=== PATIENT | female | born 1990 | race Caucasian/White ===

== ENCOUNTER → 2022-12-10 07:55 | Outpatient (CLI) | payer BC, SELFPAY ==
--- NOTE | ~2022-12-10 | US_ITS ---
EXAMINATION: US OB /maternal detail DATE: 12/10/2022 08:35 INDICATION: Estimated weight. survey. TECHNIQUE: Multiple obstetric sonographic images performed. FINDINGS: No prior studies for comparison. There is a single living fetus in transverse presentation. The placenta is posterior without placent a previa. Placental margin is approximately 5 cm from the cervix. Cervical length is 3.7 cm. Amniotic fluid is subjectively normal. cardiac activity and movement is noted with a heart rate of 154 beats per minute. The following anatomy was identified as normal: 4 chamber heart 3 vessel cord cord insertion kidneys urinary bladder stomach spine diaphragm ventricles cisterna magna cerebellum The following biometric data were obtained: BPD: 43mm corresponds to gestational age 19 weeks 1 days. Head circumference: 157 mm corresponds to gestational age 18 weeks 4 days. Abdominal circumference: 130 mm corresponds to gestational age 18 weeks 4 days. Femur length: 26 mm corresponds to gestational age 18 weeks 0 days. Head circumference to abdominal circumference ratio: 1.21 (normal range for expected gestational age is 1.09-1.27). Estimated weight: 233 grams +/- 35 grams using Hadlock method, 64.5%. IMPRESSION: 1: Single living intrauterine with an estimated gestational age of 18weeks 4days by current ultrasound measurements, with an EDC of 05/09/2023 in transverse presentation. 2. Normal survey. Reviewed, dictated and finalized at location L. IMPRESSION: 1: Single living intrauterine with an estimated gestational age of 18 weeks 4days by current ultrasound measurements, with an EDC of 05/09/2023 in tra nsverse presentation. 2. Normal survey.
== END ==
PROVIDERS: PCP Obstetrics & Gynecology; Visit Provider Obstetrics & Gynecology
DX: Z36.9 Encounter for antenatal screening, unspecified (principal); Z3A.18 18 weeks gestation of pregnancy
CPT/HCPCS: 76805

== ENCOUNTER 2023-04-26 08:00 | Outpatient (RCR) | payer BC, SELFPAY ==
[2023-04-22 10:17] VITALS: BP 110/68; PULSE 72
--- NOTE | ~2023-04-26 | US_ITS ---
EXAMINATION: US OB limited w BPP DATE: 04/26/2023 09:40 INDICATION: Biophysical profile and assess amniotic fluid index during third trimester . TECHNIQUE: Real-time pelvic ultrasound was performed. The interpreting radiologist was not present fo r the study. COMPARISON: None. FINDINGS: There is a single living fetus in vertex presentation. The placenta is on the left.. heart rat e is 145 beats per minute (bpm). Normal amniotic fluid index 9.8 cm (5th%-95%: 7.5-24.4 cm at 37 week s estimated gestational age) Biophysical profile performed by the technologist: breathing (30 sec sustained breathing in 30 minutes): 2 out of 2 movement (3 gross body movements in 30 minutes): 2 out of 2 tone (one episode of vmfvvsk-iyejnbwhy-tofovju limb movement): 2 out of 2 Amniotic fluid pocket (2 cm): 2 out of 2 Total score: 8 out of 8 IMPRESSION: 1. Single living fetus in vertex presentation with heart rate of 145 bpm. 2. Biophysical profile 8 out of 8. 3. Normal amniotic fluid index of 9.8 cm. Reviewed, dictated and finalized at location A.
[2023-04-26 09:15] VITALS: BP 105/66; PULSE 91
== END 2023-06-09 12:00 | disposition home or self-care (01) ==
LOC: ANHOBOP 08:00
PROVIDERS: Visit Provider Obstetrics & Gynecology
DX: O24.419 Gestational diabetes mellitus in pregnancy, unspecified control (principal); Z3A.37 37 weeks gestation of pregnancy
CPT/HCPCS: 59025; 76815; 76819

== ENCOUNTER 2023-04-27 05:43 | Inpatient (IN) | payer BC, SELFPAY ==
[2023-04-27] VITALS (55 sets, daily range): BP systolic 89–125; BP diastolic 59–88; PULSE 77–174; RESP 16–20; TEMP 36.2–36.8; O2SAT 80–100; BMI 28.2
[2023-04-27] MEDS: LACTATED RINGERS 1,000 ML 125 ML IV CONT (07:21)
[2023-04-27] MEDS: OXYTOCIN 30 UNITS/NS 500 ML 30 UNITS/500 ML BAG IV CONT (07:22)
[2023-04-27 07:42] LABS: Glucose Point of Care 109 mg/dl (65-105)
[2023-04-27 07:44] LABS: Basophils Absolute Auto 0.1 K/mm3 (0.0-0.1); Basophils Percent Auto 0.6 % (0.2-1.2); Eosinophils Absolute Auto 0.1 K/mm3 (0-0.3); Eosinophils Percent Auto 1.4 % (0-4.4); Hematocrit 32.5 % (37.0-47.0); Hemoglobin 10.4 g/dL (12.0-15.0); Immature Granulocyte Absolute 0.03 K/mm3 (0.00-0.031); Immature Granulocyte Percent A 0.3 % (0-0.5); Lymphocytes Percent Auto 17.9 % (18.3-44.2); Mean Corpuscular Hemoglobin 26.3 pg (26-34); Mean Corpuscular Volume 82.1 fl (80-100); Mean Platelet Volume 9.9 fl (7.4-10.4); Monocytes Absolute Auto 0.6 K/mm3 (0.1-0.6); Monocytes Percent Auto 6.1 % (2.6-8.5); Neutrophils Absolute Auto 7.4 K/mm3 (1.3-6.7); Neutrophils Percent Auto 73.7 % (45.5-73.1); Platelet Count Result 327 k/mm3 (150-375); Red Blood Count 3.96 M/mm3 (4.2-5.4); Red Cell Distribution Width 12.5 % (11.5-14.5); White Blood Count 10.1 K/mm3 (4.5-10.0)
--- NOTE | 2023-04-27 08:32 | WPDANESEPPF ---
Anes - Initial Pre Proc Eval Procedure: labor epidural Date/Time: 04/27/23 08:32 Surgeon: Manuel Perales MD Pre Op Diagnosis: labor pain Pre Op Diagnosis: IOL Patient Data Age: 32 Gender: F Height: 1.65 m Weight: 169 kg Last Vital Signs Temp 36.2 C L 04/27/23 07:28 Pulse 94 04/27/23 08:31 BP 117/73 04/27/23 08:31 Pulse Ox 100 04/27/23 08:26 O2 Del Method Room Air 04/27/23 06:59 Allergies Allergy/AdvReac Type Severity Reaction Status Date / Time clindamycin Allergy Hives Verified 04/15/23 15:36 Penicillins Allergy Hives Verified 04/15/23 15:36 Home Medications Medication Instructions Recorded Confirmed Type insulin glargine 100 unit/mL 30 unit subcut HS 04/01/23 04/01/23 History subcutaneous solution (Lantus U-100 Insulin) insulin lispro 100 unit/mL See Rx Instructions .Route .COMPLEX 04/01/23 04/01/23 History subcutaneous pen (Humalog KwikPen (U-100) Insulin) vit no.95-ferrous 1 tablet PO DAILY 04/01/23 04/01/23 History fumarate 28 mg-folic acid 800 mcg tablet () Laboratory Tests 04/27/23 04/27/23 06:56 07:16 WBC 10.1 H K/mm3 (4.5-10.0) RBC 3.96 L M/mm3 (4.2-5.4) Hgb 10.4 L g/dL (12.0-15.0) Hct 32.5 L % (37.0-47.0) MCV 82.1 fl (80-100) MCH 26.3 pg (26-34) MCHC 32.0 g/dl (32-36) RDW 12.5 % (11.5-14.5) Plt Count 327 k/mm3 (150-375) MPV 9.9 fl (7.4-10.4) Immature Gran % (Auto) 0.3 % (0-0.5) Neut % (Auto) 73.7 H % (45.5-73.1) Lymph % (Auto) 17.9 L % (18.3-44.2) [place] % (Auto) 6.1 % (2.6-8.5) Eos % (Auto) 1.4 % (0-4.4) Baso % (Auto) 0.6 % (0.2-1.2) Lymph # (Auto) 1.80 K/mm3 (0.9-3.2) [place] # (Auto) 0.6 K/mm3 (0.1-0.6) Eos # (Auto) 0.1 K/mm3 (0-0.3) Baso # (Auto) 0.1 K/mm3 (0.0-0.1) Abs Immat Gran (auto) 0.03 K/mm3 (0.00-0.031) Absolute Neuts (auto) 7.4 H K/mm3 (1.3-6.7) Absolute Nucleated RBC 0.0 K/mm3 (0.0-0.012) Nucleated RBC % 0.0 % (0.0-0.2) POC Capillary Glucose 109 H mg/dl (65-105) RPR Pending HIV 1&2 Ab/P24 Ag 4thGn Pending Blood Type O Positive Antibody Screen Pending Patient hx anesthesia problems: none Family hx anesthesia problems: none Results Review: All pre-operative results and documents have been reviewed as part of the pre-operative evaluation. [facility] Family History Family History (Updated 04/15/23 @ 15:43 by Joanie Álvarez RN) Father Diabetes mellitus Hyperlipidemia Hypertension Mother Hypothyroid Grandparent Cerebrovascular accident Grandparent Alysa Gehrig disease Grandparent Diabetes mellitus Hypertension Grandparent Melanoma Social History Social History Smoking status: Never smoker Second hand tobacco smoke exposure: No Substance use: never Lack of Transportation: No Lack of Food: Never True Current Housing: I Have Housing Concerned About Future Housing: No Difficulty Paying Gas/Electric Bills: No Difficulty Paying for Meds: No Currently Unemployed: No Education: Master's Degree or Higher Difficulty w/ Childcare or Family Care: No Spiritual care concerns: No Anes - Eval Final PreProcedure Day of Procedure 04/27/23 08:32 Patient weight: overweight ASA classification: II Anesthetic plan: proceed Anesthesia type and monitoring: regional epidural and standard monitoring Results Review: All pre-operative results and documents have been reviewed as part of the pre-operative evaluation. Informed Consent: The patient's anesthetic plan and its attendant risks and benefits were discussed with the patient/family/POA. Questions were solicited and answers provided to the satisfaction of the patient/family/POA.
[2023-04-27 08:34] LABS: HIV 1/2 Ab P24 Ag Result Negative (Negative)
--- NOTE | 2023-04-27 08:56 | WPDOBADMIT ---
Obstetrics - Admit Note Admission Note: record reviewed. Additions to the history and/or subsequent changes in the physical findings follow. 32 y/o at 37 5/7 weeks with A2DM that has been getting more difficult to control. GBS neg. EFW >90th percentile - was 7#11oz on 04/22/23. She desires induction of labor. AVSS NST reactive TOCO: contractions irregularly ABD soft, nontener, gravid EXT nontender Cervix 4/50/-2. AROM with clear fluid. Accucheck 109 this morning. A: IUP at term with poorly controlled A2DM, here for induction of labor. P: Reviewed risks / benefits / alternatives to IOL, and she would like to proceed. Oxytocin. Anticipate . Monitor accuchecks.
[2023-04-27 09:33] LABS: Glucose Point of Care 79 mg/dl (65-105)
[2023-04-27 09:58] LABS: Rapid Plasma Reagin Non-Reactive (NonReactive)
--- NOTE | 2023-04-27 12:05 | P.PCNOB_ITS ---
OB - Delivery Note Procedure Delivery date: 04/27/23 Procedure: Induction of labor with Events: Gestational Diabetes Induction method: Per Pitocin Protocol Delivery augmentation: Rupture of Membranes Delivery monitor: External FHT and External Uterine Route of delivery: Laceration Description: None Specimen: Yes (cord blood, placenta) Quantitative Blood Loss (ml): 140 Anesthesia type: Epidural Disposition: PACU Complications: None Narrative: 32 yo/ at 37 5/7 weeks gestation who presented to the hospital for induction of labor. Oxytocin was administered intravenously. Amniotomy was performed with return of clear fluid. She received an epidural for pain control. Her labor progressed and her cervix dilated completely. Accucheck was 79. She pushed with good effort and delivered the 's head to the perineum. A loose nuchal cord was splinted and the body delivered. The cord was reduced, and the nose and mouth were bulb suctioned. After a delay, the cord was clamped and cut. The was handed off the field. Cord blood was collected. The placenta delivered spontaneously and was grossly normal in appearance. The usual 3 vessel cord was noted. There were no lacerations. Needle and instrument counts were correct. The patient was taken to recovery room in stable condition. The went to the nursery in stable condition. I was present and scrubbed for the entire delivery. [place] Baby Date of : 04/27/23 Time of : 11:45 Weeks of gestation at delivery: 37 gender: Female Weight (pounds): 7 Weight (ounces): 9 presentation: vertex position: Left Occiput Anterior Placenta delivery description: Spontaneous and Normal Configuration Cord Vessel Description: 3 Vessels, Nuchal Cord (x1) and Delayed Cord Clamping score one minute: 8 score five minutes: 9
--- NOTE | 2023-04-27 12:09 | P.DS_ITS ---
DS: Admitting Diagnosis Discharge Date 04/28/23 Admitting Diagnosis IUP at 37 5/7 weeks A2DM with poor glycemic control DS: Discharge Diagnosis Discharge Diagnosis (1) (normal spontaneous vaginal delivery): Code(s): O80 - Encounter for full-term uncomplicated delivery Status: Acute (2) Gestational diabetes mellitus: Code(s): O24.419 - Gestational diabetes mellitus in , unspecified control Status: Acute OB - DS: Summary OB Procedures : None OB Procedures Intrapartum: Spontaneous Vag Delivery OB Procedures: : None Time Spent with Patient Time attestation: Total time spent providing and/or coordinating discharge services: DS: Data Data Completed and Pending Labs on day of discharge: Labs from last 24 hours 04/27/23 04/27/23 04/27/23 09:30 07:16 06:56 WBC 10.1 H RBC 3.96 L Hgb 10.4 L Hct 32.5 L MCV 82.1 MCH 26.3 MCHC 32.0 RDW 12.5 Plt Count 327 MPV 9.9 Immature Gran % (Auto) 0.3 Neut % (Auto) 73.7 H Lymph % (Auto) 17.9 L [place] % (Auto) 6.1 Eos % (Auto) 1.4 Baso % (Auto) 0.6 Lymph # (Auto) 1.80 [place] # (Auto) 0.6 Eos # (Auto) 0.1 Baso # (Auto) 0.1 Abs Immat Gran (auto) 0.03 Absolute Neuts (auto) 7.4 H Absolute Nucleated RBC 0.0 Nucleated RBC % 0.0 POC Capillary Glucose 79 109 H RPR Non-reactive HIV 1&2 Ab/P24 Ag 4thGn Negative Blood Type O Positive Antibody Screen Negative Discharge Plan Discharge Attending physician on discharge: Manuel Perales Discharging Clinician: Manuel Perales Patient Disposition: Home, Self-Care Activity: pelvic rest Diet: regular Discharge Instructions: Call or return if temperature above 100.4? F, increased abdominal pain, increased vaginal bleeding or any new problems. Stand Alone Forms: General Discharge Information Follow-up/Referrals: Manuel Perales MD [Physician] - 6 Weeks Discharge Medications: New sertraline 50 mg tablet 50 mg PO DAILY Qty: 30 1RF ibuprofen 600 mg tablet 600 mg PO Q6H PRN (Reason: cramps) Qty: 30 0RF Continued PNV cmb#95-ferrous fumarate-FA [] 28 mg iron- 800 mcg Tablet 1 tablet PO DAILY Discontinued insulin glargine [Lantus U-100 Insulin] 100 unit/mL Solution 30 unit SUBCUT HS insulin lispro [Humalog KwikPen Insulin] 100 unit/mL Insulin Pen See Rx Instructions .ROUTE .COMPLEX Rx Instructions: Breakfast- takes 1 unit SQ for every 5 gms of carbs Lunch- takes 1 unit SQ for every 8 gms of carbs Dinner- takes 1 unit SQ for every 8 gms of carbs Date of admission: 04/27/23 05:43 Primary Care Provider: PHYSICIAN,ROOFING MACHINE OPERATOR Admitting Provider: Manuel Perales Attending physician on admission: Manuel Perales Condition: Stable
--- NOTE | 2023-04-27 14:16 | OBPPTRN ---
Patient transferred to post room #278 via wheelchair. Support person present. Oriented to unit, room, information board, rooming in, admission packet and security measures. Patient verbalizes understanding.
[2023-04-27] MEDS: IBUPROFEN 600 MG TABLET PO ×2 (14:36→20:30)
[2023-04-27] MEDS: ACETAMINOPHEN 325 MG TABLET 650 MG PO (16:26)
[2023-04-27] MEDS: DOCUSATE SODIUM 100 MG CAPSULE PO (16:26)
[2023-04-28] MEDS: IBUPROFEN 600 MG TABLET PO ×2 (04:46→10:30)
[2023-04-28 04:59] LABS: Hematocrit 33.9 % (37.0-47.0); Hemoglobin 10.6 g/dL (12.0-15.0)
[2023-04-28 07:35] VITALS: BP 109/70; PULSE 79; RESP 16; TEMP 37.2; O2SAT 100
--- NOTE | 2023-04-28 08:57 | PM.OBPNVD ---
OB - PN: Subj Subjective Date/time seen: 04/28/23 08:57 Narrative: Pain OK. Would like to go home. OB - PN: Obj Data Labs 04/28/23 04:50 Labs: Laboratory Results - last 24 hr 04/27/23 04/27/23 04/28/23 07:16 09:30 04:50 Hgb 10.6 L Hct 33.9 L POC Capillary Glucose 79 RPR Non-reactive OB - PN A/P Plan day: 1 Comments: A: PPD#1, doing well. P: Home to f/u 6 weeks. Exam Psych: Other: AVSS ABD soft, nontender, fundus firm EXT nontender
[2023-04-28] MEDS: DOCUSATE SODIUM 100 MG CAPSULE PO (10:00)
--- NOTE | 2023-04-28 10:23 | WPDANLDPN2 ---
Anes-Prog Note L&D Date/Time: 04/28/23 10:23 Neuro status: Neuro function grossly intact. Cardiovascular status: normal Respiratory status: normal Airway patency: baseline Mental status: baseline Post-Op hydration status: normal Vital Signs: Last Vital Signs Temp 37.2 C 04/28/23 07:35 Pulse 79 04/28/23 07:35 Resp 16 04/28/23 07:35 BP 109/70 04/28/23 07:35 Pulse Ox 100 04/28/23 07:35 O2 Del Method Room Air 04/27/23 14:20 Pain score (VAS): 0 Post-procedural complaints: none Patient feedback: Patient satisfied with anesthetic care.
[2023-04-28] MEDS: ACETAMINOPHEN 325 MG TABLET 650 MG PO (13:00)
== END 2023-04-28 15:45 | disposition home or self-care (01) | DRG 807 ==
LOC: ANHLDR 12:11 → ANHOB2 14:27
PROVIDERS: Admitting Provider Obstetrics & Gynecology; Visit Provider Obstetrics & Gynecology
DX: O24.429 Gestational diabetes mellitus in childbirth, unspecified control (principal); Z37.0 Single live birth; Z3A.37 37 weeks gestation of pregnancy; O69.81X0 Labor and delivery complicated by cord around neck, without compression, not applicable or unspecified
CPT/HCPCS: 36415; 82948; 85014; 85018; 85025; 86592; 86703; 86850; 86900; 86901; 88307; A9270; G0432; J2590; J2795; J7120

== ENCOUNTER 2023-04-29 10:30 | Outpatient (RCR) | payer BC, SELFPAY ==
[2023-03-22 08:54] VITALS: BP 105/68; PULSE 92
[2023-03-25 09:35] VITALS: BP 114/66; PULSE 105
[2023-03-29 17:22] VITALS: BP 123/81; PULSE 89
--- NOTE | 2023-03-29 17:48 | PC.NURSE ---
174: Dr. Perales's cell phone was called. RN informed OB of NST and also informed OB that ultrasound was too busy to get to patient anytime soon. OB stated she can be discharged home with instructions to schedule a NST and BPP for .
[2023-04-01 11:19] VITALS: BP 109/70; PULSE 100
[2023-04-05 09:17] VITALS: BP 105/67; PULSE 87
[2023-04-08 10:46] VITALS: BP 106/68; PULSE 76
[2023-04-12 16:04] VITALS: BP 109/71; PULSE 97
[2023-04-15 10:43] VITALS: BP 116/71; PULSE 108
[2023-04-19 08:47] VITALS: BP 108/68; PULSE 94
--- NOTE | ~2023-04-29 | US_ITS ---
EXAMINATION: US OB BPP wo non-stress DATE: 04/01/2023 11:15 INDICATION: Gestational diabetes. Third trimester. TECHNIQUE: Real-time pelvic ultrasound was performed. COMPARISON: Ultrasound 03/22/2023 FINDINGS: There is a single living fetus in vertex presentation. The placenta is posterior. heart rate i s 159 beats per minute (bpm). Biophysical profile performed by the technologist: breathing (30 sec sustained breathing in 30 minutes): 2 out of 2 movement (3 gross body movements in 30 minutes): 2 out of 2 tone (one episode of vysulkx-nkdbiutps-isplpjr limb movement): 2 out of 2 Amniotic fluid pocket (2 cm): 2 out of 2 Total score: 8 out of 8 IMPRESSION: 1. Single living fetus in vertex presentation. 2. Biophysical profile 8 out of 8. Reviewed, dictated and finalized at location L.
--- NOTE | ~2023-04-29 | US_ITS ---
EXAMINATION: US OB BPP wo non-stress DATE: 04/05/2023 09:00 INDICATION: Gestational diabetes. Third trimester. TECHNIQUE: Real-time pelvic ultrasound was performed. COMPARISON: Ultrasound 04/01/2023 FINDINGS: There is a single living fetus in vertex presentation. The placenta is posterior. heart rate i s 141 beats per minute (bpm). Biophysical profile performed by the technologist: breathing (30 sec sustained breathing in 30 minutes): 2 out of 2 movement (3 gross body movements in 30 minutes): 2 out of 2 tone (one episode of plikuad-wrwgguxsi-rvolqjm limb movement): 2 out of 2 Amniotic fluid pocket (2 cm): 2 out of 2 Total score: 8 out of 8 IMPRESSION: 1. Single living fetus in vertex presentation. 2. Biophysical profile 8 out of 8. Reviewed, dictated and finalized at location A.
--- NOTE | ~2023-04-29 | US_ITS ---
EXAMINATION: US OB BPP wo non-stress DATE: 04/19/2023 09:02 INDICATION: Gestational diabetes. Third trimester. TECHNIQUE: Real-time pelvic ultrasound was performed. COMPARISON: Ultrasound 04/12/2023 FINDINGS: There is a single living fetus in vertex presentation. The placenta is posterior. heart rate i s 176 beats per minute (bpm). Biophysical profile performed by the technologist: breathing (30 sec sustained breathing in 30 minutes): 2 out of 2 movement (3 gross body movements in 30 minutes): 2 out of 2 tone (one episode of uiufxsl-lrpbkzxts-twsypov limb movement): 2 out of 2 Amniotic fluid pocket (2 cm): 2 out of 2 Total score: 8 out of 8 IMPRESSION: 1. Single living fetus in vertex presentation. 2. Biophysical profile 8 out of 8. Reviewed, dictated and finalized at location A.
--- NOTE | ~2023-04-29 | US_ITS ---
EXAMINATION: US OB BPP wo non-stress DATE: 03/22/2023 08:57 CDT INDICATION: Gestational diabetes. TECHNIQUE: Real-time transabdominal obstetric ultrasound. FINDINGS: No prior studies for comparison. There is a single living fetus in vertex presentation. The placenta is posterior without placenta pr evia. cardiac activity and movement is noted with a heart rate of 139 beats per minute. Biophysical profile: breathin of 2 movement: 2 of 2 tone: 2 of 2 Amniotic flud pocket: 2 of 2 Total score: 8 of 8 IMPRESSION: 1. Single living intrauterine in vertex presentation. 2: Total biophysical profile score of 8/8. Reviewed, dictated and finalized at location A.
--- NOTE | ~2023-04-29 | US_ITS ---
EXAMINATION: US OB BPP wo non-stress DATE: 04/12/2023 16:34 INDICATION: Maternal gestational diabetes during third trimester . TECHNIQUE: Real-time pelvic ultrasound was performed. The interpreting radiologist was not present fo r the study. COMPARISON: None. FINDINGS: There is a single living fetus in vertex presentation. The placenta is posterior and not low-lying. heart rate is 149 beats per minute (bpm). Amniotic fluid volume is subjectively normal Biophysical profile performed by the technologist: breathing (30 sec sustained breathing in 30 minutes): 2 out of 2 movement (3 gross body movements in 30 minutes): 2 out of 2 tone (one episode of iwoccdx-lvmulakiy-xocevpl limb movement): 2 out of 2 Amniotic fluid pocket (2 cm): 2 out of 2 Total score: 8 out of 8 IMPRESSION: 1. Single living fetus in vertex presentation with heart rate of 149 bpm. 2. Biophysical profile 8 out of 8. Reviewed, dictated and finalized at location A.
== END 2023-06-09 12:01 | disposition home or self-care (01) ==
LOC: ANHOBOP 10:30
PROVIDERS: Visit Provider Obstetrics & Gynecology
DX: O24.419 Gestational diabetes mellitus in pregnancy, unspecified control (principal); Z3A.34 34 weeks gestation of pregnancy; Z3A.35 35 weeks gestation of pregnancy; Z3A.36 36 weeks gestation of pregnancy
CPT/HCPCS: 59025; 76819

== ENCOUNTER 2024-11-02 15:55 | Outpatient (CLI) | payer BC, SELFPAY ==
--- NOTE | ~2024-11-02 | US_ITS ---
EXAMINATION: US thyroid DATE: 11/02/2024 16:16 INDICATION: Thyroid nodule. TECHNIQUE: Multiple ultrasound images of the thyroid were obtained. COMPARISON: None. FINDINGS: The right thyroid lobe measures 5.0 x 1.0 x 1.9 cm. The left thyroid lobe measures 3.9 x 1.0 x 1.5 c m. In the right thyroid lobe, there is a 4 mm nodule. Thyroid vascularity is normal. IMPRESSION: 1. Small thyroid nodule, likely benign. No follow-up is needed. Reviewed, dictated and finalized at location A. ION JAILER
== END 2024-11-02 15:56 | disposition home or self-care (01) ==
LOC: MICIMG 15:57
PROVIDERS: PCP Family Medicine; Visit Provider Family Medicine
DX: E04.1 Nontoxic single thyroid nodule (principal)
CPT/HCPCS: 76536

== ENCOUNTER 2025-02-08 06:45 | Outpatient (CLI) | payer BC, SELFPAY ==
--- NOTE | ~2025-02-08 | MR_ITS ---
EXAMINATION: MR foot LT wo/w con DATE: 02/08/2025 08:08 INDICATION: Left plantar nerve lesion TECHNIQUE: Magnetic resonance imaging (MRI) of the left fore/mid foot was performed without intraveno us contrast. Sequences included axial, sagittal and coronal T1-weighted FSE, axial and coronal T2-kit ghted FS FSE, sagittal fluid sensitive FSE STIR, axial T1-weighted FS FSE and postcontrast axial, sag ittal and coronal T1-weighted FS FSE. COMPARISON: None FINDINGS: Bone alignment is normal. No fracture. There is mild osteoarthritis at the first metatarsophalangeal joint with subarticular cystlike changes suggesting overlying high-grade chondromalacia along the rid ge between the articulations with the tibial and fibular sesamoids. There is associated prior small j oint effusion at the first metatarsophalangeal joint. Small mild polyarticular osteoarthritis at chanel ral of the tarsal metatarsal and interphalangeal joints. Lisfranc ligament complex as well as the col lateral ligament complexes at the metatarsophalangeal and interphalangeal joints are normal. The visu alized portions of the flexor and extensor tendons are normal. 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 There is some surrounding edema which extends proximally along the do rsal interosseous muscle demonstrated between the necks of the third and fourth metatarsals. No other abnormal masses or fluid collections identified. IMPRESSION: 1. 10 x 4 x 5 mm nodular soft tissue arising from between the heads of the third and fourth metatarsa ls consistent with a Bass's neuroma/plantar of perineural fibrosis. Reviewed, dictated and finalized at location A. IMPRESSION: 1. 10 x 4 x 5 mm nodular soft tissue arising from between the heads of the thir d and fourth metatarsals consistent with a Bass's neuroma/plantar of perineur al fibrosis.
--- OUTSIDE RECORDS SUMMARY | 2025-02-08 06:49 | XMS_ITS | Referral Summary ---
Author Organization [facility] Address [address] [place] [address] [place] [address] Care Team Providers Care Boring Machine Operator Name Role Phone Geno Marinelli MD Primary Care Provider Encounters Date Type Department Care Team Description 01/12/2025 [facility]phone [facility] [address] [place] [phone] Corby Arnold MA Nurte CHLOÉ 01/11/2025 11:30 AM CDT Procedure visit [facility] [address] [place] [phone] Tony Jensen MD Intractable chronic migraine without aura and without status migrainosus (Primary Dx) from Last 3 Months Allergies Active Allergy Reactions Criticality Noted Date Comments Clindamycin Hives,Itching Medium 04/15/2018 hives Fentanyl Nausea And Vomiting Low 06/09/2024 Liquid Fentanyl makes her feel bad Penicillins Hives,Rash,Urticaria Medium 09/18/2013 Medications onabotulinumtox in A (Botox) 100 unit recon soln Inject 155 Units into the muscle as instructed every 3 (three) months 4 Active leflunomide (ARAVA) 10 mg tablet 5 Active Ozempic 1 mg/dose (4 mg/3 mL) pen injector injection Inject 0.5 mg under the skin once a week 5 Active rimegepant (Nurtec ODT) tablet,disinteg ratingIndicatio ns:Intractable chronic migraine without aura and without status migrainosus Take 1 tablet (75 mg total) by mouth daily as needed (Migraine Abortive) 12 tablet 3 5 Active rimegepant (Nurtec ODT) tablet,disinteg rating Take 1 tablet (75 mg total) by mouth daily as needed (Migraine Abortive) 12 tablet 3 4 01/12/20 25 Discontin ued(Reord er) Active Problems Problem Noted Date Diagnosed Date Intractable chronic migraine without aura and without status migrainosus 12/15/2023 Overview (12/15/2023): Please see my note from 12/15/2023 for the patient has complete headache history. Assessment & Plan (12/15/2023 8:52 AM CDT): Assessment The patient has a history of chronic migraine. At baseline she has about 19 migraine days per month. She has had a greater than 50% reduction in severity and frequency of her headaches with the Botox. She wishes to resume this treatment. Her last treatment was September 10, 2023. Plan: Restart Botox for chronic migraine. When she is completed she may resume taking Nurtec as needed for acute treatment for migraine. She reports good to our pain relief with this medication High-risk 01/22/2023 Overview (12/15/2023): Pap 02/2022 and HPV negative NIPT LR, genetic screening neg Gestational diabetes mellitus (GDM), antepartum 01/19/2023 Acute thoracic back pain 07/09/2019 Fall 07/09/2019 Anxiety 04/15/2018 Migraine without aura and wi thout status migrainosus, not intractable 11/03/2017 Thyroid nodule 06/02/2016 Thoracic back sprain 07/31/2015 Social History Tobacco Use Types Packs/Day Years Used Date Smoking Tobacco: Never Smokeless Tobacco: Never Tobacco Cessation:Counseling Given: Not Answered AUDIT-C Answer Date Recorded Q1: How often do you have a drink containing alcohol? Never 01/11/2025 Q2: How many drinks containi ng alcohol do you have on a typical day when you are drinking? Patient does not drink Q3: How often do you have si x or more drinks on one occasion? Never 01/11/2025 Comments No Sex and Gender Information Value Date Recorded Sex Assigned at Not on file Legal Sex Female 2:17 PM GENERAL MANAGER IN TRAINING Gender Identity Female 12/10/2023 7:35 PM CDT Sexual Orientation Straight 12/10/2023 7: 35 PM CDT Last Filed Vital Signs Vital Sign Reading Time Taken Comments Blood Pressure 106/58 01/11/2025 11:44 AM CDT Pulse 95 01/11/2025 11:44 AM CDT Temperature - - Respiratory Rate 16 10/19/2024 11:37 AM GENERAL MANAGER IN TRAINING Oxygen Saturation 98% 01/11/2025 11:44 AM CDT Inhaled Oxygen Concentration - - Weight 61.2 kg (135 lb) 01/11/2025 11:44 AM CDT Height 165.1 cm (5' 5) 01/11/2025 11:44 AM CDT Body Mass Index 22.47 01/11/2025 11:44 AM CDT Plan of Treatment Not on file Procedures Procedure Name Priority Date/Time Associated Diagnosis Comments BOTOX INJECTION Routine 01/11/2025 11:30 AM CDT Intractable chronic migraine without aura and without status migrainosus from Last 3 Months Results * Botox Injection (01/11/2025 11:30 AM CDT) Narrative Margaux Garcia - 01/11/2025 11:30 AM CDT Margaux Garcia 01/12/2025 9:29 AM Botox Injection Performed by: Tony Jensen MD Authorized by: Tony Jensen MD [place] Protocol: Procedure Details - Botox Injection: Procedure Details: See Botox flow sheet for details on injection sites and amounts. us Tony Jensen MD IN CLINIC/BEDSIDE ORDERAB LES Final Result from Last 3 Months Insurance [employer] ACCESS ME Care Teams Boring Machine Operator Relationship Specialty Start Date End Date Geno Marinelli MD [address] [place] [id number] PCP - General Family Medicine 10/19/24
--- OUTSIDE RECORDS SUMMARY | 2025-02-08 06:49 | XMS_ITS | Clinical Summary ---
Author Organization [facility] Address [address] [place] [address] Phone Care Team Providers Care Radius Grinder Name Role Phone Provider, None Primary Care Provider Unavailabl e Allergies Active Allergy Reactions Criticality Noted Date Comments Clindamycin Hives 07/08/2019 Penicillins Hives 07/08/2019 Medications No known medications Active Problems Problem Noted Date Diagnosed Date fall07/09/2019 Acute thoracic back pain 07/09/2019 Social History Tobacco Use Types Packs/Day Years Used Date Smoking Tobacco: Never Assessed PHQ-2 Answer Date Recorded PHQ-2 Score 0 07/09/2019 Comments No Sex and Gender Information Value Date Recorded Sex Assigned at Not on file Legal Sex Female 9:53 PM CDT Gender Identity Not on file Sexual Orientation Not on file Last Filed Vital Signs Vital Sign Reading Time Taken Comments Blood Pressure 113/81 07/10/2019 11:25 AM ELECTRICAL SIGN WIRER HELPER Pulse 70 07/10/2019 11:25 AM ELECTRICAL SIGN WIRER HELPER Temperature 36.9 C (98.4 F) 07/10/2019 11:25 AM ELECTRICAL SIGN WIRER HELPER Respiratory Rate 18 07/10/2019 11:25 AM ELECTRICAL SIGN WIRER HELPER Oxygen Saturation 98% 07/10/2019 11:25 AM ELECTRICAL SIGN WIRER HELPER Inhaled Oxygen Concentration - - Weight 64.9 kg (143 lb) 07/08/2019 10:07 PM ELECTRICAL SIGN WIRER HELPER Height 165.1 cm (5' 5) 07/08/2019 10:07 PM ELECTRICAL SIGN WIRER HELPER Body Mass Index 23.8 07/08/2019 10:07 PM ELECTRICAL SIGN WIRER HELPER Plan of Treatment Health Maintenance Due Date Last Done Comments Hepatitis C Virus (HCV) Screening 1989 TdaP Immunization 1989 Human Papillomavirus (HPV) Immunization (1 - 3-dose series) 2004 Hepatitis B Immunization (1 of 3 - 19+ 3-dose series) 2008 SARS-COV-2 Immunization ( - 2023- season) 2024 Influenza Immunization (Seas on Ended) 2025 Respiratory Syncytial Virus (RSV) Immunization (Adult) (1 - 1-dose 75+ series) 2064 Cervical Cancer Screening (CCS) Discontinued Pap Smear Discontinued 05/31/2015 HPV/Cotest Discontinued Meningococcal Immunization (ACWY) Aged Out No longer eligible based on patient's age to complete this topic Pneumococcal Immunization Combined Aged Out No longer eligible based on patient's age to complete this topic Rotavirus Immunization Aged Out No lo nger eligible based on patient's age to complete this topic Procedures Procedure Name Priority Date/Time Associated Diagnosis Comments PATHOLOGY CYTOLOGY COTTON FARMER Routine 05/31/2015 10:33 AM CDT Encounter for screening for malignant neoplasm of cervix from Last 3 Months or Most Recently Relevant to Health Maintenance Results * PATHOLOGY CYTOLOGY COTTON FARMER (05/31/2015 10:33 AM CDT) SPECIMEN ADEQUACY Satisfactory for evaluation 06/04/2015 9:03 AM CDT [facility] GENERAL CATEGORY 06/04/2015 9:03 AM T [facility] Comment:Negative for intraep ithelial lesion or malignancy DESCRIPTIVE DIAGNOSIS NEGATIVE FOR INTRAEPITHELIAL LESIONS OR MALIGNANCY 06/04/2015 9:03 AM [facility] at 0903 CDT Clinical Information Last pap - 03/06/14. 06/04/2015 9:03 AM [facility] DISCLAIMER The PAP smear is a screening test designed to detect cancerous or precancerous cells of the uterine cervix. It is one of the best means available for detection of cervical cancer but still carries an inherent false-negative rate. The consequences of a false-negative PAP result can be minimized by adhering to current screening guidelines. The following are general guidelines recommended by the ACS, ASCP, ASCCP, and ACOG: PAP testing is recommended every three years for women 21-29, Co-Testing, a PAP test in conjunction with an HPV (Human Papillomavirus) test for women ages 30-65, and no PAP or HPV testing for women under the age of 21 or older than 65 unless clinically indicated. 06/04/2015 9:03 AM CDT [facility] Case Report Gynecologic Cytology Report Case: [id number] Authorizing Provider: Yaz Back PA Collected: 05/31/2015 10:33 AM First Screen: Melinda Canchola Received: 06/03/2015 10:34 AM Rescreen: Ginny Christopher MD Specimen: Cervical, CERVIX 06/04/2015 9:03 AM CDT [facility] Specimen of unknown material (specimen) CERVIX UTERI STRUCTURE / Unknown 05/31/2015 10:33 AM CDT 06/03/2015 10:34 AM CDT Yaz Back PAC PATHOLOGY/CYTOLOGY ORDERA BLES Final Result Performing Organization Address City/State/[facility] Co de Phone Number [facility] [address] [place] [address] from Last 3 Months or Most Recently Relevant to Health Maintenance Insurance Advance Directives * Full Code (Latest Code Status on File) Date Activated Date Inactivated Comments 07/09/2019 11:57 AM 07/10/2019 3:30 PM CPR-Full Treatment: FULL ARREST: Attempt Resuscitation/CPR wit intubation and mechanical ventilation. PRE-ARREST: Use entire range of life support measures to stabilize the patient. Care Teams Radius Grinder Relationship Specialty Start Date End Date Provider, None [place] PCP - General 07/08/19
--- OUTSIDE RECORDS SUMMARY | 2025-02-08 06:49 | XMS_ITS | Clinical Summary ---
Author Organization [facility] [employer] Address [facility] [facility] [place] [address] Care Team Providers Care Tax Assessor Name Role Phone Birdie Hoffmann DO Unavailable [phone] None, Physician Primary Care Provider Unavailabl e Source Comments [facility],non-owned Affiliates and Associated Physician Practices is amultiple site organization consisting of ambulatory clinics and hospital sitesin [place], [place], [place] and [place]. This disclosure is being madepursuant to the Care Everywhere program and may not contain all information available regarding this patient. Last updated 18.[facility] Allergies Active Allergy Reactions Criticality Noted Date Comments Clindamycin Itching 04/15/2018 hives Penicillins Rash,Urticaria Medium 09/18/2013 Medications * Be aware that medications may not be up to date on this document. Alwaysverify current medications with the patient. Vit-Fe Fumarate-FA ( VITAMINS) 28-0.8 MG TABSIndications: vitamins Take 1 (one) tablet by mouth once daily Reasons: vitamins 90 tablet 3 1 Active Magnesium 200 MG TABSIndications: Maternal migraine, history of Take 200 mg by mouth once daily Active insulin detemir (Levemir FlexPen) penIndications:I nsulin controlled gestational diabetes mellitus (GDM) in second trimester ([facility]) Starting dose: inject 10 units in the evening, increase up to 50 units per day only as instructed. 15 mL 3 3 Active Additional Information Patient not taking.Reported on 06/03/2023 aspirin (Aspirin) 81 MG chew tabletIndication s:Insulin controlled gestational diabetes mellitus (GDM) in second trimester ([facility]) Take 2 (two) tablets by mouth once daily 100 tablet 4 3 Active Additional Information Patient not taking.Reported on 06/03/2023 insulin aspart (NovoLOG FLEXPEN) penIndications:I nsulin controlled gestational diabetes mellitus (GDM) in second trimester ([facility]) Inject only as instructed before meal, up to 50 units per day. 15 mL 2 3 Active Additional Information Patient not taking.Reported on 06/03/2023 Insulin Pen Needle 32G X 4 MM MISCIndications: Insulin controlled gestational diabetes mellitus (GDM) in second trimester ([facility]) 1 Each by Injection route 4 times daily 100 Each 2 3 Active Additional Information Patient not taking.Reported on 06/03/2023 rimegepant (Nurtec) 75 MG tabletIndication s:Intractable chronic migraine without aura and without status migrainosus Take 75 mg by mouth once daily as needed for Migraine 4 tablet 3 Active Additional Information Patient not taking.Reported on 09/10/2023 onabotulinumtoxi n A (BOTOX) 100 units injectionIndicat ions:Migraine Inject 155 (one hundred fifty five) Units into muscle Every 90 days Reasons: Migraine Headache 2 Each 1 4 Active Active Problems Problem Noted Date Diagnosed Date High-risk 01/22/2023 Overview (01/22/2023): Pap 02/2022 and HPV negative NIPT LR, genetic screening neg Gestational diabetes mellitus (GDM), antepartum 01/19/2023 History of gestational diabetes 06/05/2019 Anxiety 04/15/2018 Migraine without aura and wi thout status migrainosus, not intractable 11/03/2017 Family history of melanoma 03/30/2017 Thyroid nodule 06/02/2016 Resolved Problems Problem Noted Date Diagnosed Date Resolved Date Family history of polydactyly 01/19/2023 01/19/2023 Encounter for induction of labor 11/07/2020 12/16/2020 Gestational diabetes mellitu s (GDM) in second trimester 08/20/2020 08/20/2020 Gestational diabetes mellitu s (GDM), antepartum 08/20/2020 12/16/2020 Supervision of other normal , antepartum 04/16/2020 12/16/2020 Compression fracture of T12 vertebra with routine healing 08/03/2019 01/22/2023 Closed compression fracture of body of L1 vertebra 08/03/2019 01/22/2023 Acute thoracic back pain 07/09/2019 Fall 07/09/2019 03/29/2020 Gestational diabetes mellitus, antepartum 01/26/2019 06/05/2019 Supervision of other normal , antepartum 10/03/2018 06/05/2019 Overview (10/10/2018): Male Intractable chronic migraine without aura and without status migrainosus 05/06/2018 03/29/2020 Hip flexor tendinitis, left 06/29/2017 03/29/2020 Exercise-induced asthma 05/26/201703/01 Overview (01/28/2018): Overview: Diagnosed as child Multiple benign nevi of uppe r and lower extremities, and trunk 03/30/2017 03/29/2020 Neoplasm of uncertain behavior of skin 03/30/2017 11/18/2018 Plantar wart of left foot 03/30/2017 Solar lentigo 03/30/2017 03/29/2020 KCS (keratoconjunctivitis sicca) 07/02/2016 03/29/2020 Adjustment disorder with anxious mood 05/26/2016 03/29/2020 Thoracic back sprain 07/31/2015 020 Immunizations Immunization Administration Dates Next Due Unifyo primary monoval ent 12+ yr 0.3mL Purple cap 02/03/2021,01/08/2021 HEP B VACCINE, ADULT 3 DOSE 09/19/2021 HEP B VACCINE, PED/ADOL 05/09/1993,12/02/1992, INFLUENZA VACCINE 06/20/2018 MENINGOCOCCAL ACWY (MCV4P) VAC IM 11/17/2006 MMR 11/08/2020(Deferred: Patient Condition - pt is rubella immune),11/18/1994,03/16/1991 TDAP (7yrs+) 02/25/2023,(Deferred: Patient Condition - pt received this ),08/20/2020,02/10/2019,05/17,03/16/2011 Family History Medical History Relation Name Comments Diabetes - Type 2 Father Hyperlipidemia Father Hypertension Father Cancer - Other Maternal Aunt cervical CVA Maternal Grandmother Hypertension Maternal Grandmother Thyroid Disease Mother Diabetes - Type 2 Paternal Grandmother Relation Name Status Comments Father Alive Maternal Aunt Maternal Grandmother Mother Alive Paternal Grandmother Social History Tobacco Use Types Packs/Day Years Used Date Smoking Tobacco: Never Smokeless Tobacco: Never Alcohol Use Standard Drinks/Week Comments Not Currently 0 (1 standard drink = 0.6 oz pur e alcohol) occas PHQ-2 Answer Date Recorded PHQ2 TOTAL SCORE 0 01/15/2023 [place] Depression Scale Answer Date Recorded Last EPDS Total Score Not on file 12/16/2020 The thought of harming myself has occurred to me . Never 12/16/2020 Education Answer Date Recorded What is the highest level of school you have completed or the highest degree you have received? 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 on file Not on file Not on file Last Filed Vital Signs Vital Sign Reading Time Taken Comments Blood Pressure 146/89 09/10/2023 3:03 PM STORE SHOPPER Pulse 121 09/10/2023 3:03 PM STORE SHOPPER Temperature 36.3 C (97.4 F) 09/10/2023 3:03 PM STORE SHOPPER Respiratory Rate 16 06/04/2023 2:06 PM CDT Oxygen Saturation 98% 09/10/2023 3:03 PM STORE SHOPPER Inhaled Oxygen Concentration - - Weight 68.3 kg (150 lb 8 oz) 09/10/2023 3:03 PM STORE SHOPPER Height 165.1 cm (5' 5) 09/10/2023 3:03 PM STORE SHOPPER Body Mass Index 25.04 09/10/2023 3:03 PM STORE SHOPPER Plan of Treatment Health Maintenance Due Date Last Done Comments HEPATITIS C SCREENING 11/30/2007 PAP SMEAR 09/06/2021 09/06/2018 COVID-19 VACCINE ( season) 2024 09/02/2021, 02/03/2021, 01/08/2021 DEPRESSION SCREENING 08/30/2024 01/19/2023 INFLUENZA VACCINE (Season Ended) 2025 06/20/2018 DTAP/TDAP/TD VACCINES (6 - Td or Tdap) 02/25/2033 02/25/2023, 08/20/2020, 02/10/2019, Additional history exists ZOSTER VACCINE (1 of 2) 12/05/2039 MENINGOCOCCAL GROUPS A/C/Y/W VACCINE Completed 11/17/2006 HIV SCREENING Completed 04/19/2020, 10/06/2018 HEPATITIS B VACCINE Completed 09/19/2021, 05/09/1993, 12/02/1992, Additional history exists HIB VACCINE Aged Out No longer eligi ble based on patient's age to complete this topic HPV VACCINE Aged Out No longer eligi ble based on patient's age to complete this topic MENINGOCOCCAL (Group B) VACCINE SHARED DECISION-MAKING Aged Out No longer eligible based on patient's age to complete this topic PNEUMOCOCCAL VACCINE Aged Out No long er eligible based on patient's age to complete this topic Procedures Procedure Name Priority Date/Time Associated Diagnosis Comments OBSTETRIC PANEL Routine 04/19/2020 10:42 AM CDT Supervision of other normal , antepartum PAP IG LB RFLX HPV APTIMA ASCU Routine 09/06/2018 3:01 PM STORE SHOPPER Well woman exam with routine gynecological exam from Last 3 Months or Most Recently Relevant to Health Maintenance Results * OBSTETRIC PANEL (04/19/2020 10:42 AM CDT) Hepatitis B Virus Surface Antigen Negative Negative [facility] INSURANCE BILL RPR Non Reactive Non Reactive [facility] INSURANCE BILL Rubella Antibody 2.89 Immune >0.99 index [facility] INSURANCE BILL Comment: Non-immune <0.90 Equivocal 0.90 - 0.99 Immune >0.99 ABO O [facility] INSURANCE BILL Rh Type Positive [facility] INSURANCE BILL Comment: Please note: Prior records for this patient's ABO / Rh type are not available for additional verification. Antibody Screen Negative Negative [facility] INSURANCE BILL HIV Screen 4th Generation w Reflex Non Reactive Non Reactive [facility] INSURANCE BILL WBC 8.0 3.4 - 10.8 x10E3/uL [facility] INSURANCE BILL RBC 4.62 3.77 - 5.28 x10E6/uL [facility] INSURANCE BILL Hemoglobin 13.0 11.1 - 15.9 g/dL [facility] INSURANCE BILL Hematocrit 39.5 34.0 - 46.6 % [facility] INSURANCE BILL MCV 86 79 - 97 fL [facility] INSURANCE BILL MCH 28.1 26.6 - 33.0 pg [facility] INSURANCE BILL MCHC 32.9 31.5 - 35.7 g/dL [facility] INSURANCE BILL RDW 12.6 11.7 - 15.4 % [facility] INSURANCE BILL Platelet Count 334 150 - 450 x10E3/uL [facility] INSURANCE BILL Granulocytes % 64 Not Estab. % [facility] INSURANCE BILL Lymphocytes % 27 Not Estab. % [facility]URANCE BILL Monocytes % 6 Not Estab. % [facility]URANCE BILL Eosinophils % 2 Not Estab. % [facility] INSURANCE BILL Basophils % 1 Not Estab. % [facility] INSURANCE BILL Immature Cells NOT NEEDED [facility] INSURANCE BILL Comment:Ancillary determined the test is not needed. Granulocytes Absolute 5.2 1.4 - 7.0 x10E3/uL [facility] INSURANCE BILL Lymphocytes Absolute 2.2 0.7 - 3.1 x10E3/uL [facility] INSURANCE BILL Monocytes Absolute 0.5 0.1 - 0.9 x10E3/uL [facility] INSURANCE BILL Eosinophils Absolute 0.1 0.0 - 0.4 x10E3/uL [facility] INSURANCE BILL Basophils Absolute 0.1 0.0 - 0.2 x10E3/uL [facility] INSURANCE BILL Immature Granulocytes 0 Not Estab. % [facility] INSURANCE BILL Immature Granulocytes Absolute 0.0 0.0 - 0.1 x10E3/uL [facility] INSURANCE BILL nRBC NOT NEEDED [facility] INSURANCE BILL Comment:Ancillary determined the test is not needed. Comment Hematology NOT NEEDED [facility] INSURANCE BILL Comment:Ancillary determined the test is not needed. Blood BLOOD SPECIMEN / Unknown 04/19/2020 10:42 AM CDT 04/19/2020 Narrative Resulting Agency Comment [facility] performed at: [facility] [address] [facility] [phone] Gardenia Nguyen MD LAB - CHEMISTRY ORDERABLES Final Result [facility] INSURANCE BILL [address] [place] [address] * PAP IG LB RFLX HPV APTIMA ASCU (09/06/2018 3:01 PM STORE SHOPPER) Diagnosis [facility] ACCOUNT BILL Comment:NEGATIVE FOR INTRAEP ITHELIAL LESION AND MALIGNANCY. Specimen Adequacy [facility] ACCOUNT BILL Comment:Satisfactory for anisa luation. No endocervical component is identified. Clinician Provided ICD10 [facility] ACCOUNT BILL Comment: Z01.419 N92.6 Performed by [facility] ACCOUNT BILL Comment:Primo Grant, [facility] otechnologist (ASCP) Comment . [facility] ACCOUNT BILL Note [facility] ACCOUNT BILL Comment: The Pap smear is a screening test designed to aid in the detection of premalignant and malignant conditions of the uterine cervix. It is not a diagnostic procedure and should not be used as the sole means of detecting cervical cancer. Both false-positive and false-negative reports do occur. . IGLBP CPT Code Automation [facility] ACCOUNT BILL Comment: This liquid based ThinPrep(R) pap test was screened with the use of an image guided system. Note [facility] ACCOUNT BILL Comment: The HPV DNA reflex criteria were not met with this specimen result therefore, no HPV testing was performed. . ENTIRE ENDOCERVIX / Unknown 09/06/2018 3:01 PM STORE SHOPPER 09/07/2018 Narrative [facility] ACCOUNT BILL - 09/08/2018 7:14 AM STORE SHOPPER No. of containers..01 ThinPrep Vial Resulting Agency Comment [address] [place] [phone] [place] Gardenia Nguyen MD LAB - PATHOLOGY/CYTOLOGY ORDERAB LES Final Result [facility] ACCOUNT BILL [address] [address] from Last 3 Months or Most Recently Relevant to Health Maintenance Insurance [facility] Advance Directives * Full Code (Latest Code Status on File) Date Activated Date Inactivated Comments 11/07/2020 6:07 AM 11/08/2020 5:26 PM * Full Code Date Activated Date Inactivated Comments 04/23/2019 4:17 PM 04/25/2019 1:27 PM * Full Code Date Activated Date Inactivated Comments 04/23/2019 2:29 PM 04/23/2019 4:17 PM Care Teams Tax Assessor Relationship Specialty Start Date End Date None, Physician [facility] [place] [address] PCP - General 03/25/23 Birdie Hoffmann DO [address] [facility] [address] [place] [address] Cardiovascular Disease 09/06/20
--- OUTSIDE RECORDS SUMMARY | 2025-02-08 06:49 | XMS_ITS | Clinical Summary ---
Author Organization [facility] Address [address] [facility] [place] [address] Care Team Providers Care Drapery Cutter Machine Name Role Phone Geno Marinelli MD Primary Care Provider Allergies Active Allergy Reactions Criticality Noted Date [...] Thyroid nodule 06/02/2016 Thoracic back sprain 07/31/2015 Encounters Date Type Department Care Team Description 01/12/2025 [facility] [address] [facility] [address] [place] [id number] Corby Arnold MA Nurtec PA 01/11/2025 11:30 AM CDT Procedure visit [facility] [address] [facility] [address], [place] [address] Tony Jensen MD Intractable chronic migraine without aura and without status migrainosus (Primary Dx) from Last 3 Months Surgical History Surgery Date Site/Laterality Comments HIP SURGERY Medical History Medical History Date Comments Migraine Gestational diabetes Family History Medical History Relation Name Comments Diabetes Father Hyperlipidemia Father Hypertension Father Relation Name Status Comments Father Alive Mother Alive Social History Tobacco Use Types Packs/Day Years [...] on file Legal Sex Female 2:17 PM RATE MARKER Gender Identity Female 12/10/2023 7:35 PM CDT Sexual Orientation Straight 12/10/2023 7: 35 PM CDT Obstetrics History Last Filed Vital Signs Vital Sign Reading Time Taken Comments Blood Pressure 106/58 01/11/2025 11:44 AM CDT Pulse 95 01/11/2025 11:44 AM CDT Temperature - - Respiratory Rate 16 10/19/2024 11:37 AM RATE MARKER Oxygen Saturation 98% 01/11/2025 11:44 AM CDT Inhaled Oxygen Concentration - - Weight 61.2 kg (135 lb) 01/11/2025 11:44 AM CDT Height 165.1 cm (5' 5) 01/11/2025 11:44 AM CDT Body Mass Index 22.47 01/11/2025 11:44 AM CDT Plan of Treatment Health Maintenance Due Date Last Done Comments Cervical Cancer Screening 1989 Depression Screening 1989 Hepatitis C Screening 1989 Varicella Vaccines (1 of 2 - 13+ 2-dose series) 2002 Regular Well Visit/Exam 18-64 12/05/2007 Covid-19 Vaccine ( season) 2024 09/02/2021, 02/03/2021, 01/08/2021 Influenza Vaccine (Season Ended) 2025 05/05/2023, 06/05/2022, 06/20/2018 DTaP/Tdap/Td Vaccine (6 - Td or Tdap) 02/25/2033 02/25/2023, 08/20/2020, 02/10/2019, Additional history exists Hepatitis B Screening Completed 03/20/2022 , 10/21/2021, 09/19/2021, Additional history exists HPV Vaccines Aged Out No longer eligi ble based on patient's age to complete this topic Pneumococcal vaccine <65 Aged Out No longer eligible based on [...] Jensen MD Authorized by: Tony Jensen MD [place] Protocol: Procedure Details - Botox Injection: Procedure Details: See Botox flow sheet for details on injection sites and amounts. us Tony Jensen MD IN CLINIC/BEDSIDE ORDERAB LES Final Result from Last 3 Months Insurance [employer] [place] Care Teams Drapery Cutter Machine Relationship Specialty Start Date End Date Geno Marinelli MD [address] [place] [id number] PCP - General Family Medicine 10/19/24
--- OUTSIDE RECORDS SUMMARY | 2025-02-08 06:49 | XMS_ITS | Encounter Summary ---
Author Organization [facility] Address [address] [place], [place] [address] [address] Care Team Providers Care Relish Maker Name Role Phone Panchito Kruse MD Primary Care Provider [phone] Talia Garay MD Primary Care Provider Myah Jacobs MD Primary Care Provider [phone] Cherri Harrell [employer] CUTTER MACHINE[employer] P[employer]ER Primary Care Provider + Myah Jacobs MD Primary Care Provider [phone] Cherri Harrell [employer] C[employer] MACHINE[employer] Primary Care Provider + Myah Jacobs MD Primary Care Provider [phone] Cherri Harrell [employer]ACE C[employer] MACHINE[employer] PICKER Primary Care Provider + Birdie Hoffmann DO Unavailable None, Physician Primary Care Provider Unavailabl e Encounter Details Date Type Department Care Team (Late st Contact Info) Description 07/06/2018 Lab Requisition [facility] [address] [place] [id number] Unlisted, Ordering Provider, Social History Tobacco Use Types Packs/Day Years Used Date Smoking Tobacco: Never Smokeless Tobacco: Never Alcohol Use Standard Drinks/Week Comments Yes 0 (1 standard drink = 0.6 oz pur e alcohol) socially Comments No Sex and Gender Information Value Date Recorded Sex Assigned at Female 05/01/2021 8:01 PM CDT Legal Sex Female 3:21 PM [employer] Gender Identity Female 05/01/2021 8:01 PM CDT Sexual Orientation Straight 05/01/2021 8: 01 PM CDT documented as of this encounter Plan of Treatment Not on file documented as of this encounter Procedures Procedure Name Priority Date/Time Associated Diagnosis Comments GLUCOSE VITALITY Routine 07/07/2018 11:1 0 AM [facility] HEMOGLOBIN A1C Routine 07/07/2018 11:10 AM [employer] LIPID PROFILE Routine 07/07/2018 11:10 AM [employer] documented in this encounter Results * HEMOGLOBIN A1C (07/07/2018 11:10 AM [employer]) Hemoglobin A1c 5.5 4.4 - 6.3 % 07/07/2018 1:35 PM [facility] Estimated Average Glucose 111 mg/dL 07/07/2018 1:35 PM [employer] [facility] Comment: HbA1c Interpretation: Treatment target values recommended by ADA and other clinical organizations should be used to evaluate metabolic control in patients. Treatment Target Values: Normal : < 5.7% Pre-diabetes: 5.7-6.4% Diabetes: Equal to or greater than 6.5% Reference: [place] [employer] Standards of Care in Diabetes -2014 In patients 70 years and older consider HbA1c target range of 7.0-7.5% Reference: Diabetes Mellitus in Older People: Position Statement on behalf of the International Association of Gerontology and Geriatrics (IAGG), the Diabetes Working [employer] for Older People (EDWPOP), and the International Task Force of Experts in Diabetes. Valeriy Uriostegui, et al. J [place] [employer] Association. 2012 Test results diagnostic of diabetes should be repeated for confirmation. The Tosoh G8 assay for the measurement of HbA1c is a National Glycohemoglobin Standardization Program (NGSP)certified method. Results for patients with HbE disease should be interpreted with caution as this hemoglobinopathy has been shown to interfere with the Tosoh G8 assay. Blood BLOOD SPECIMEN / Unknown 07/07/2018 11:10 AM [employer] 07/07/2018 11:39 AM [employer] us Ordering Provider Unlisted MD LAB - CHEMISTRY OR DERABLES Final Result Performing Organization Address City/[facility]/ZIP Co de Phone Number [address] [phone] * LIPID PROFILE (07/07/2018 11:10 AM [facility]) Cholesterol Total 192 <200 mg/dL 07/07/2018 12:15 PM [facility] HDL 86 >40 mg/dL 07/07/2018 12:15 PM [facility] Comment: ATP III Classification of HDL Cholesterol: <40 mg/dL: Considered a major risk factor. >60 mg/dL: Considered a negative risk factor. LDL Calculated 88 <100 mg/dL 07/07/2018 12:15 PM [facility] Comment: ATP III Classification of LDL Cholesterol: <100 mg/dL: Optimal 100 - 129 mg/dL: Near Optimal/Above Optimal 130 - 159 mg/dL: Borderline High 160 - 189 mg/dL: High >190 mg/dL: Very High Triglycerides 89 <150 mg/dL 07/07/2018 12:15 PM [facility] Comment: ATP III Classification of Triglycerides: <150 mg/dL: Normal 150 - 199 mg/dL: Borderline High 200 - 400 mg/dL: High >500 mg/dL: Very High Blood BLOOD SPECIMEN / Unknown 07/07/2018 11:10 AM [employer] 07/07/2018 11:39 AM [employer] us Ordering Provider Unlisted MD LAB - CHEMISTRY OR DERABLES Final Result [address] [phone] * GLUCOSE VITALITY (07/07/2018 11:10 AM [facility]) Glucose 93 70 - 115 mg/dL 07/07/2018 12:17 PM [facility] Blood BLOOD SPECIMEN / Unknown 07/07/2018 11:10 AM [employer] 07/07/2018 11:39 AM [employer] us Ordering Provider Unlisted MD LAB - CHEMISTRY OR DERABLES Final Result [facility] [address] [place] [address], [facility] [phone] documented in this encounter Visit Diagnoses Not on filedocumented in this encounter Additional Health Concerns Infection Onset Date Last Indicated Resolved Time COVID-19 Under Investigation 08/05/2020 08/05/2020 08/06/2020 1:24 AM [employer] COVID-19 Confirmed 08/05/2020 08/05/2020 0 4:35 AM [employer] documented as of this encounter Care Teams Relish Maker Relationship Specialty Start Date End Date Panchito Kruse MD [address] [place] [address] PCP - General 05/06/18 07/10/18 Talia Garay MD [address] [place] [address] PCP - General 07/11/18 11/16/18 Myah Jacobs MD [address] [address] PCP - General 11/17/18 01/24/19 Cherri Harrell, [employer] L[employer] C[employer]TER MACHINE[employer]ER PICKER [address] [place] [address] PCP - General Nurse Practitioner 01/25/19 01/27/19 Myah Jacobs [facility] [address] [facility] [address] [place] [address] PCP - General 01/28/19 03/28/20 Cherri Harrell, [employer] LACE C[employer]TER MACHINE[employer]ER PICKER [address] [place] [address] PCP - General Nurse Practitioner 03/29/20 03/29/20 Myah Jacobs MD [address] [facility] [address] [place] [address] PCP - General 03/30/20 08/27/20 Cherri Harrell, [employer]OT LACE CUTTER MACHINE[employer]ER PICKER [address] [place] [address] PCP - General 08/28/20 03/24/23 None, Physician [address] [place] [address] PCP - General 03/25/23 Birdie Hoffmann DO [address] [facility] [address] [place] [address] Cardiovascular Disease 09/06/20 documented as of this encounter
--- OUTSIDE RECORDS SUMMARY | 2025-02-08 06:50 | XMS_ITS | Data Portability ---
Author Organization [facility], [address] [place] [address] [place] ([place]) Address [address] [place] [phone] Care Team Providers Care Program Clinician Name Role Phone RUSSEL MIDDLETON Primary Care Provider [phone] Assessment Encounter Date Assessment Date Assessment LastModified by Organization Details LastModified Time 07/05/2024 07/05/2024 IMPRESSION: 1. 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 2. Osteoarthritis. 3. History of Raynaud s phenomenon. PLAN: 1. Labs today, including hepatitis B and C screens and G6PD level. 2. Discussed with the patient today calcium channel nuirs therapy for her Raynaud s symptoms. She would prefer to hold off on these medications and see whether the Raynaud s bothers her during the winter. If so, she would contemplate starting a trial of one of these medications. 3. X-rays bilaterally of the hands, wrists, ankles and feet to assess for erosive changes and periarticular osteopenia. 4. Initiate hydroxychloroquine 200 mg orally daily. I did discuss various treatment options with the patient today. Since the symptoms are significantly impacting her daily activities, I did recommend to her that she initiate a DMARD agent. We discussed hydroxychloroquine and methotrexate therapy, as well as leflunomide. Currently with her history of migrainous headaches, would prefer to avoid oral methotrexate therapy, which can certainly worsen these headaches. We discussed hydroxychloroquine, its indications, risks, benefits and potential side effects in detail. She will initiate 200 mg orally daily. 5. Followup visit in 2 months. Once she starts her hydroxychloroquine, we will want to obtain labs within 4-6 weeks. david Not available 07/06/2024 12:02:34 09/06/2024 09/06/2024 IMPRESSION: 1. Seropositive RA currently with breakthrough symptoms on hydroxychloroquine therapy. We discussed other DMARD options in the conventional realm, including methotrexate of which she is concerned about migrainous headaches. We discussed leflunomide. She is no longer planning to have any children. We discussed the teratogenic risks to the fetus should she become while taking leflunomide therapy. She indicates her has had a vasectomy and she has no plans to conceive. She is in a monogamous relationship. The indications, risks, benefits and potential side effects of leflunomide therapy, including cytopenias, infection, liver inflammation are all discussed with the patient today in detail. We discussed laboratory monitoring as well. 2. Raynaud s phenomenon. 3. Osteoarthritis, very mild in the knees. PLAN: 1. Discontinue hydroxychloroquine. 2. Initiate leflunomide 10 mg orally daily. 3. Labs in 4 weeks, then again in 8 weeks for DMARD monitoring. 4. We will retrieve the results of her x-rays of the extremities previously ordered, but not forwarded to this office from [facility]. 5. Cold protection measures to continue for the extremities. 6. Followup visit in 3 months. david Not available 09/07/2024 08:45:03 12/07/2024 12/07/2024 IMPRESSION: 1. Seropositive RA, currently active. 2. Raynaud's phenomenon. 3. Osteoarthritis. PLAN: 1. I provided the patient with a very brief steroid taper. She may take 2.5 to 10 mg daily only as needed for flares of her arthritis. I did discuss this with her today and she is keenly aware that the prednisone will affect her sugars, causing an exacerbate of her diabetes. Thus, I would prefer she use this only for emergent purposes only so she can function. She has three children and a brand new retriever to take care of. 2. Increase leflunomide to 20 mg daily. 3. Labs in 4 weeks, then again in 8 weeks for DMARD monitoring. 4. I discussed with the patient today again the importance of avoiding . She reports that her has had a vasectomy. 5. Follow up visit in 3 months. katherine Not available 12/07/2024 13:18:25 Plan of Treatment Reminders Order Date Submit Date Provider Last Modified By Organization Details Last Modified Time Details Appointments Establish ed Patient 15.EST 2024 09:00A M Dr. Matt Duran Not available Not available Not available Lab CBC 2024 025 [facility], [address] [place] [address], [id number], 11/02/2024 13:29:08 CMP, serum or plasma 2024 025 [facility], [address] [place] [address], [id number], 11/02/2024 13:21:18 ESR (erythroc yte sedimenta tion rate), blood 2024 025 [facility], [address] [place] [address], [id number], 11/02/2024 13:22:23 C-reactiv e protein, quantitat alanna, serum or plasma 2024 025 [facility], [address] [place] [address], [id number], 11/05/2024 12:22:40 Referral None recorded. Procedures None recorded. Surgeries None recorded. Imaging None recorded. Medication Orders None recorded. Patient TargetsNo targets recorded. Patient InstructionsNo instructions recorded. Reason for Referral None Reported. Results Created Date Observation Date Name Description Value Unit Range Abnormal Flag Note LastModifiedBy Organization Detail LastModifiedTime 10/25/1907/16/2024 XR, foot No observ ation record ed. [facility] [address], [place], [address], 10/25/2024 09:12:03 Result Notes None recorded. Problems Name Problem SNOMED Code Status Onset Date Resolution Date Notes Provider Name and Address Organization Details Recorded Time Seropositiv e rheumatoid arthritis 991016834 Active 2023 Luke Lucas [facility] 4 08:51:30 Primary gonarthrosi s, bilateral 749083935 Active 2023 Matt Duran MD [address] [place] [address], [phone], [facility] 4 20:37:52 Raynaud's phenomenon 160055632 Active 2023 Matt Duran MD [address] [place] [address], [phone], [facility] 4 20:38:07 Pain of bilateral hands 2821467398506 9109 Active 2023 [facility] 09:[facility]:17 Pain in both feet 9559773931186 9102 Active 2023 [facility] 09:03:26 Generalized osteoarthri tis 811431422 Active 2024 Matt Duran MD [address] [place] [address], [phone], [facility] 5 10:25:11 Problem Notes None recorded. Medical Equipment None Reported. Allergies No known drug allergies Medications Name Sig Start Date Stop Date Status Note LastModified by Organization Details LastModified Time tizanidine 2 mg tablet 09/06 completed Not Available Not Available Not Available prednisone 5 mg tablet TAKE 1 TABLET BY MOUTH TWICE DAILY NEEDED 2024 active Not Available Not Available Not Avai lable metformin 850 mg tablet 07/05 completed Not Available Not Available Not Available leflunomide 10 mg tablet TAKE 1 TABLET BY MOUTH DAILY active Not Available Not Available No t Available ciprofloxacin 500 mg tablet 07/05 completed Not Available Not Available Not Available leflunomide 20 mg tablet Take 1 tablet every day by oral route. 2024 active Not Available Not Available Not Avai lable triamcinolone acetonide 0.1 % topical cream as needed active Not Available Not Available No t Available oxycodone-dunia taminophen 5 mg-325 mg tablet 07/05 completed Not Available Not Available Not Available alprazolam 0.25 mg tablet 07/05 completed Not Available Not Available Not Available cephalexin 500 mg capsule 07/05 completed Not Available Not Available Not Available mupirocin 2 % topical ointment 07/05 completed Not Available Not Available Not Available gabapentin 100 mg capsule 07/05 completed Not Available Not Available Not Available hydroxychloro quine 200 mg tablet Take 1 tablet every day by oral route. 12/07 completed Not Available Not Available Not Available methylprednis olone 4 mg tablets in a dose pack 07/05 completed Not Available Not Available Not Available ondansetron 4 mg disintegratin g tablet 07/05 completed Not Available Not Available Not Available diazepam 5 mg tablet 07/05 completed Not Available Not Available Not Available buspirone 15 mg tablet 07/05 completed Not Available Not Available Not Available escitalopram 10 mg tablet TAKE 1 TABLET BY MOUTH DAILY 07/05 completed Not Available Not Available Not Available cyclobenzapri ne 5 mg tablet 07/05 completed Not Available Not Available Not Available Ozempic 1 mg/dose (4 mg/3 mL) subcutaneous pen injector INJECT 1 MG ONCE WEEKLY active Not Available Not Available No t Available Dexcom G7 Sensor device USE FOUR TIMES DAILY - CHANGE SENSOR EVERY 10 DAYS active Not Available Not Available No t Available Ozempic 0.25 mg or 0.5 mg (2 mg/3 mL) subcutaneous pen injector INJECT 0.5 MG UNDER THE SKIN EVERY WEEK 07/05 completed Not Available Not Available Not Available Vitals Date Recorded Body height Body mass index (BMI) Body weight Heart rate Oxygen saturation Oxygen saturation in Arterial blood by Pulse oximetry Systolic blood pressure Diastolic blood pressure Provider Name and Address Organization Details Last Updated DateTime 5 165.1 cm 23.6 kg/m2 59368.1 2 g 70 /min 99 % 99 % 102 mm[Hg] 74 mm[Hg] Ayah Rosales [facility] 5 15:42:37 Date Recorded Body height Body mass index (BMI) Body weight Heart rate Oxygen saturation Oxygen saturation in Arterial blood by Pulse oximetry Systolic blood pressure Diastolic blood pressure Provider Name and Address Organization Details Last Updated DateTime 5 165.1 cm 22.6 kg/m2 53979.5 6 g 105 /min 100 % 100 % 112 mm[Hg] 64 mm[Hg] [facility] 5 10:05:16 Date Recorded Body height Body mass index (BMI) Body weight Heart rate Oxygen saturation Oxygen saturation in Arterial blood by Pulse oximetry Systolic blood pressure Diastolic blood pressure Provider Name and Address Organization Details Last Updated DateTime 4 165.1 cm 24.7 kg/m2 26072.1 1 g 85 /min 98 % 98 % 112 mm[Hg] 72 mm[Hg] Ayah Rosales [facility] 4 17:35:19 Social History None recorded. Functional Status None recorded. Mental Status None recorded. Family History Nothing Reported. Medical History No medical history recorded. Gynecological HistoryNo gynecological history recorded. Obstetrics History GPAL:G 0 P 0 0 0 0 Immunizations Vaccine Type Date Status Note Provider Nam e and Address Organization Details Recorded Time Influenza, split virus, quadrivalent, preservative 3 completed [facility] 12/07/2024 10:05:37 Influenza, split virus, quadrivalent, preservative 2 completed [facility] 12/07/2024 10:05:37 MMR 5 completed [facility] 12/07/2024 10:05:37 MMR 1 completed [facility] 12/07/2024 10:05:37 COVID-19, mRNA, LNP-S, PF, 30 mcg/0.3 mL dose 2 completed [facility] [place] 12/07/2024 10:05:37 COVID-19, mRNA, LNP-S, PF, 30 mcg/0.3 mL dose 1 completed [facility] [place] 12/07/2024 10:05:37 COVID-19, mRNA, LNP-S, PF, 30 mcg/0.3 mL dose 1 completed Zoi Dunse null, [facility] 12/07/2024 10:05:37 Tdap 3 completed Zoi Dunse null, [facility] 12/07/2024 10:05:37 Tdap 1 completed Zoi Dunse null, [facility] 12/07/2024 10:05:37 Tdap 0 completed Zoi Dunse null, [facility] 12/07/2024 10:05:37 Hep B, adolescent or pediatric 3 completed Zoi Dunse null, [facility] 12/07/2024 10:05:37 Hep B, adolescent or pediatric 3 completed Zoi Dunse null, [facility] 12/07/2024 10:05:37 Hep B, adolescent or pediatric 3 completed Zoi Dunse null, [facility] 12/07/2024 10:05:37 Hep B, adult 2 completed Zoi Dunse null, [facility] 12/07/2024 10:05:37 Hep B, adult 2 completed Zoi Dunse null, [facility] 12/07/2024 10:05:37 Hep B, adult 2 completed Zoi Dunse null, [facility] 12/07/2024 10:05:37 meningococcal MCV4P 7 completed Zoi Dunse null, [facility] 12/07/2024 10:05:37 Past Encounters Encounter ID Performer Location Encounter Start Date Encounter Closed Date Diagnosis/Indication Diagnosis SNOMED-CT Code Diagnosis ICD10 Code Diagnosis Note [id number] Matt Duran MD [address] [place] [address] [facility] ([place]) [address] [place] [address],[address] [place] [phone] 07/05/2024 16:35:49 07/05/2024 18:54:45 Seropositive rheumatoid arthritis 180679837 M05.9 Primary go narthrosis, bilateral 690397711 M17.0 Raynaud's phenomenon 266 758347 I73.00 [id number] Matt Duran MD [address] [facility] ([place]) [address] [place] [address] 09/06/2024 15:20:02 09/07/2024 18:23:52 Seropositive rheumatoid arthritis 105366961 M05.9 Raynaud's phenomenon 266 013643 I73.00 [id number] Matt Duran MD [facility] ([place]) [address] [place] [phone] 12/07/2024 09:52:55 12/11/2024 16:06:37 Raynaud's phenomenon 559962850 I73.00 Seropositi ve rheumatoid arthritis 364034687 M05.9 Generalize d osteoarthritis 227295571 M15.9 Health Concerns Section Related Observation LastModified by Organization Detai ls LastModified Time None Recorded Concern Status LastModified by Organization Details LastModified Time None Recorded Advance Directives Directive None Recorded Payers Insurance Date Sequence Insurance Name Policy Number Policy [place] Covered Member ID [place] Member ID Guarantor Name 12/06/2024 1 [place] [id number] [facility] [id number] Notes Date Note Type Note Provider Name and Address Organization Details Recorded Time 07/05/2024 text/html 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 Middleton regarding rheumatologic evaluation and management of polyarthralgias in the setting of elevated early RA markers on a recent panel, rule out underlying early RA. The patient describes spontaneous onset of almost 3-4 months ago of at first bilateral wrist and finger MCP and PIP joint intense pain, stiffness and swelling with loss of function, including recruiter weakness and difficulties performing her physical activities at work. She initially had to take some time away from work and sought trials of naproxen and eventually ibuprofen 800 mg orally 3 times daily, but her morning stiffness persisted, lasting up to 2 hours in duration. She states her pain initially was an 8/10 on a scale. Involvement spread in an additive fashion to the elbows and knees, as well as MTP joints of the feet with symmetric severe stiffness, swelling and pain. She again noticed recruiter weakness and difficulties with hand dexterity and ambulating. She has not ever required the use of an assistive device for ambulation. No falls or fractures. She sought the evaluation of Dr. Middleton and underwent serologic testing on May 22, 2024, demonstrating a rheumatoid factor of less than 14, CCP antibody of less than 20, normal TSH and free T4 levels as she was feeling quite fatigued with onset of her arthritic symptoms. Her Lyme titer screen was negative or normal. CBC was normal as was a Westergren sed rate and C-reactive protein and NATTY screen. However, her early RA panel revealed an elevated L4.3.3 ETA level of 1.81 units with an elevated anti-CarP level. The patient was subsequently placed on a trial of oral prednisone for approximately 10 days and reports that while on the prednisone, within 48 hours her symptoms improved almost 90% or more. However, immediately after stopping the prednisone, her symptoms began to return. The patient currently has been using and eventually switched to ibuprofen 800 mg orally 3 times daily as the steroids were making her sugars climbed. Of note, she has a past history of diabetes as well and currently takes Ozempic for its control. She has not tolerated previous trials of oral agents such as metformin. She reports that with the use of Ozempic her hemoglobin A1c has come down to roughly 6.4%. She also watches her diet quite carefully. The patient reports that with the ibuprofen 800 mg orally 3 times daily, it takes the edge off her symptoms and allows her to function, though she still encounters up to 2 hours of morning stiffness and often postpones her procedures and avoids them in the morning in her practice. She has previously tried as well meloxicam without much in the way of relief. Currently, she rates her pain level a 2-4/10 on a scale. She does manage to ambulate and perform her own ADLs without the use of an assistive device. She has had no fevers, unexplained weight loss, night sweats, aphthous ulcers, eye inflammatory symptoms, skin subcutaneous nodules, rash, photosensitivity. She has had Raynaud s symptoms in her hands and feet since her teens. She simply engages in cold protection measures. She does not currently take medication for her Raynaud s symptoms. She denies any cough or pleurisy, shortness of breath, chest pain or palpitations, GERD, melena, or hematochezia, diarrhea or constipation, anorexia or early satiety, dysuria or gross hematuria or bleeding from the nares or gums. No GERD, melena or hematochezia. No history of peptic ulcer disease, GI bleeding, hepatitis, or transfusions. She has chronic constipation and takes Metamucil. She has had no early satiety, dysuria or gross hematuria or bleeding from the nares or gums. No history of DVT or PE or seizures. On family history, her father has had arthralgias. Her sister has arthritis issues too, but no Raynaud s symptoms. The only individual in her family that has confirmed RA is that of her paternal grandmother. The patient has 3 children, all of whom are healthy. I have reviewed the patient s past medical history and [employer] intake form.david Duran MD [facility] [address], [phone], [facility] 07/06/2024 21:33:37 09/06/2024 text/html The patient is a 33-year-old female with a history of early seropositive rheumatoid arthritis and osteoarthritis, as well as Raynaud s phenomenon, who is here today for a followup visit. She continues on hydroxychloroquine and reports initially within the first 4-6 weeks she encountered an improvement with medication, but now her joints have begun to flare through the medication. She tolerates its use without rash, pruritus, cough, wheezing, shortness of breath, visual complaints, headaches or issues with myalgias or weakness. She did notice that it tended to make her sugars very labile. She is on Ozempic for control of her diabetes. She reports eventually with continued use and adjustments in her medications she noticed a stabilization of her sugars but again feels as though she is breaking through the medications, especially at her hands and wrists where she is encountering pain, stiffness and swelling. Currently she rates her pain anywhere from a 1-4/10 on a scale. Her morning stiffness is lasting up to an hour in duration. She has been experiencing some Raynaud s symptoms with the recent cold weather, but she tries her best to keep her hands and feet as warm as possible. No digital ulcerations. She has had no fevers, unexplained weight loss, cough or pleurisy, chest pain or palpitations, GERD, melena or hematochezia, diarrhea or constipation. Of note, we had discussed possible advancement from hydroxychloroquine to methotrexate therapy, but she is very concerned about migrainous headaches with methotrexate. Please see discussion below.david Duran MD [address] [place] [address], [phone], [facility] 09/07/2024 13:42:50 12/07/2024 text/html This is a 34-yea r-old female with seropositive RA, osteoarthritis and Raynaud's phenomenon, who is here for a follow up visit. She has now been on leflunomide 10 mg daily for 3 months. She reports she did quite well up until 1 month ago when, for some reason, she began to experience flaring of her rheumatoid arthritis with increased swelling, pain and stiffness involving the hands, wrists, elbows, knees, ankles and MTP joints of the feet. Her symptoms are symmetric. She rates her pain at a 5/10 on a scale. Her morning stiffness is lasting 1 to 2 hours in duration. She tolerates the leflunomide without nausea, vomiting or postdosing diarrhea, loss of appetite or early satiety. She did have to back off on her Ozempic therapy because of some GI issues with that medication. She denies any fever or chills. No skin rash, Raynaud's symptoms, aphthous ulcers, cough, pleurisy, shortness of breath, chest pain or palpitations, GERD, melena or hematochezia, dysuria or gross hematuria or bleeding from the nares or gums. Her labs from October 23, 2024 were reviewed with her today. A CBC, CMP and sed rate were normal at that time though she reports that was prior to her current flare.katherine Duran MD [address] [place] [address], [phone], [facility] 12/08/2024 11:02:13 OBGyn Episode No OBEpisode recorded.
--- OUTSIDE RECORDS SUMMARY | 2025-02-08 06:50 | XMS_ITS | Encounter Summary ---
Author Organization [facility] Address [address] [place], [place] [address] [address] Care Team Providers Care Event Coordinator Name Role Phone Panchito Kruse MD Primary Care Provider Talia Garay MD Primary Care Provider Myah Jacobs MD Primary Care Provider [phone] Cherri Harrell SCALE OPERATOR-CRACKLING PRESS OPERATOR Primary Care Provider + Myah Jacobs MD Primary Care Provider [phone] Cherri Harrell SCALE OPERATOR-CRACKLING PRESS OPERATOR Primary Care Provider + Myah Jacobs MD Primary Care Provider [phone] Cherri Harrell SCALE OPERATOR-CRACKLING PRESS OPERATOR Primary Care Provider + Birdie Hoffmann DO Unavailable None, Physician Primary Care Provider Unavailabl e Encounter Details Date Type Department Care Team (Late st Contact Info) Description 06/23/2018 Lab Requisition [facility] [address] [place] [phone] Unlisted, Ordering Provider, Social History Tobacco Use Types Packs/Day Years Used Date Smoking Tobacco: Never Smokeless Tobacco: Never Alcohol Use Standard Drinks/Week Comments Yes 0 (1 standard drink = 0.6 oz pur e alcohol) socially Comments No Sex and Gender Information Value Date Recorded Sex Assigned at Female 05/01/2021 8:01 PM CDT Legal Sex Female 3:21 PM 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 Gender Identity Female 05/01/2021 8:01 PM CDT Sexual Orientation Straight 05/01/2021 8: 01 PM CDT documented as of this encounter Plan of Treatment Not on file documented as of this encounter Visit Diagnoses Not on filedocumented in this encounter Additional Health Concerns Infection Onset Date Last Indicated Resolved Time COVID-19 Under Investigation 08/05/2020 08/05/2020 08/06/2020 1:24 AM 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 COVID-19 Confirmed 08/05/2020 08/05/2020 0 4:35 AM 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 documented as of this encounter Care Teams Event Coordinator Relationship Specialty Start Date End Date Panchito Kruse MD [address] [place] [id number] PCP - General 05/06/18 07/10/18 Talia Garay MD [address] [place] [address] PCP - General 07/11/18 11/16/18 Myah Jacobs MD [address] [place] [phone] PCP - General 11/17/18 01/24/19 Cherri Harrell, SCALE OPERATOR-CRACKLING PRESS OPERATOR [address] [place] [address] PCP - General Nurse Practitioner 01/25/19 01/27/19 Myah Jacobs MD [address] [phone] PCP - General 01/28/19 03/28/20 Cherri Harrell APRN-CRACKLING PRESS OPERATOR [address] [place] [address] PCP - General Nurse Practitioner 03/29/20 03/29/20 Myah Jacobs MD [address] [facility] [address] [place] [phone] PCP - General 03/30/20 08/27/20 Cherri Harrell APRN-CRACKLING PRESS OPERATOR [address] [place] [address] PCP - General 08/28/20 03/24/23 None, Physician [address] [place] [address] PCP - General 03/25/23 Birdie Hoffmann DO [address] [facility] [address] [place] [address] Cardiovascular Disease 09/06/20 documented as of this encounter
--- OUTSIDE RECORDS SUMMARY | 2025-02-08 06:50 | XMS_ITS | Clinical Summary ---
Author Organization [facility] Address [address] [place] [address] Care Team Providers Care Director Of National Sales Name Role Phone Sae Toth Provider Primary Care Provider Unavailable Allergies Active Allergy Reactions Criticality Noted Date Comments Clindamycin Hives High 06/09/2024 Fentanyl Nausea and Vomiting Low 06/09/2024 Liquid Fentanyl makes her feel bad Penicillins Hives High 07/31/2015 Medications ibuprofen (MOTRIN) 600 mg tablet Take 600 mg by mouth every 6 hours as needed for Pain, Mild. Active citalopram (CELEXA) 10 mg tablet Take 10 mg by mouth daily. Active ALPRAZolam (XANAX) 0.25 mg tablet Take 0.25 mg by mouth nightly as needed for Anxiety. Active meloxicam (MOBIC) 15 mg tablet Take 1 Tablet (15 mg) by mouth daily. 30 Tablet 1 5 Active Additional Information Patient not taking.Reported on 06/09/2024 semaglutide (OZEMPIC SUBCUT) Inject by subcutaneous injection every 7 days. Takes on Active OTHER Multivitamin daily Active rimegepant (Nurtec ODT) 75 mg Tablet, Rapid Dissolve Take by mouth 1 time daily as needed. Active Active Problems Problem Noted Date Diagnosed Date Thoracic back sprain 07/31/2015 Anxiety Encounters Date Type Department Care Team Description 01/18/2025 External Device Data STL ABSTRACTION Provider, Abstract 01/17/2025 External Device Data STL ABSTRACTION Provider, Abstract 01/16/2025 External Device Data STL ABSTRACTION Provider, Abstract 12/12/2024 External Device Data STL ABSTRACTION Provider, Abstract 11/15/2024 External Device Data STL ABSTRACTION Provider, Abstract 11/15/2024 External Device Data STL ABSTRACTION Provider, Abstract from Last 3 Months Family History Medical History Relation Name Comments Diabetes Father Cancer Maternal Aunt Stroke Maternal Grandmother Cancer Paternal Grandfather Diabetes Paternal Grandmother Relation Name Status Comments Father Maternal Aunt Maternal Grandmother Paternal Grandfather Paternal Grandmother Social History Tobacco Use Types Packs/Day Years Used Date Smoking Tobacco: Never Smokeless Tobacco: Never Tobacco Cessation:Counseling Given: Not Answered Alcohol Use Standard Drinks/Week Comments Not Currently 0 (1 standard drink = 0.6 oz pur e alcohol) Comments No Sex and Gender Information Value Date Recorded Sex Assigned at Not on file 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 Gender Identity Not on file Sexual Orientation Not on file Last Filed Vital Signs Vital Sign Reading Time Taken Comments Blood Pressure 107/65 06/22/2024 2:25 PM CDT Pulse 92 06/22/2024 2:25 PM CDT Temperature 36.1 C (97 F) 06/22/2024 1:21 PM CDT Respiratory Rate 20 06/22/2024 2:25 PM CDT Oxygen Saturation 98% 06/22/2024 2:25 PM CDT Inhaled Oxygen Concentration - - Weight 64.9 kg (143 lb) 06/09/2024 2:16 PM CDT Height 165.1 cm (5' 5) 06/09/2024 2:16 PM CDT Body Mass Index 23.8 06/09/2024 2:16 PM CDT Plan of Treatment Health Maintenance Due Date Last Done Comments HPV/Cotest (-) 2010 HPV/Cotest (-) 12/05/2019 CERVICAL CANCER SCREENING 09/06/2021 PAP SMEAR 09/06/2021 09/06/2018 INFLUENZA VACCINE (#1) 2024 COVID-19 Vaccine ( season) 2024 02/03/2021, 01/08/2021 DTAP/TDAP/TD VACCINES (6 - Td or Tdap) 02/25/2033 02/25/2023, 08/20/2020, 02/10/2019, Additional history exists HEPATITIS B VACCINES Completed 09/19/2021, 05/09/1993, 12/02/1992, Additional history exists HPV VACCINES Aged Out No longer eligi ble based on patient's age to complete this topic Medical Devices Implanted Type Area Turner Splitter Machine Operator Device Identifier Shelf Expiration Date Model / Serial / Lot Imp Breast Inspira 605ml Full Prfl Scf-605 - Mswb - [id number] Implanted:Qty: 1 on 06/22/2024 by Thomas Oliver MD at [facility] Mammary Right: Breast ALLERGAN- MEDICAL [id number] 10/18/2028 SCF-605 / [id number] / [id number] Imp Breast Inspira 560ml Full Prfl [facility] [place]-560 - Mswb - [id number] Implanted:Qty: 1 on 06/22/2024 by Thomas Oliver MD at [facility] Mammary Left: Breast ALLERGAN- MEDICAL [id number] 02/01/2029 [facility] [place] / [id number] / [id number] Advance Directives For more information, please contact: [phone] * Full Code (Latest Code Status on File) Date Activated Date Inactivated Comments 06/22/2024 11:25 AM 06/23/2024 2:52 AM Care Teams Director Of National Sales Relationship Specialty Start Date End Date Sae Toth Provider PCP - General 09/09/15
== END 2025-02-08 06:46 | disposition home or self-care (01) ==
PROVIDERS: PCP Family Medicine; Visit Provider Podiatrist Foot & Ankle Surgery
DX: G57.62 Lesion of plantar nerve, left lower limb (principal)
CPT/HCPCS: 73720; A9579

== ENCOUNTER 2025-06-15 07:24 | Outpatient (CLI) | payer BC, SELFPAY ==
--- NOTE | ~2025-06-15 | US_ITS ---
EXAMINATION: US pelvic complete w TV, 06/15/2025 7:30 CDT HISTORY: N92.1 - Excessive and frequent menstruation with irregula... Comparison: None Technique: Medeiros-scale and color Doppler images were obtained. Findings: Uterus: Uterus anteverted 7 x 6.7 x 4.3 cm. . Endometrium 8 mm. Right Ovary:Right ovary 3.4 x 1.9 x 1.5 cm, no adnexal mass, normal flow. Left Ovary: Left ovary 2.6 x 2.4 x 1.6 cm, no adnexal mass, normal flow. Free Fluid: None Impression: No etiology to explain the patient's symptoms Reviewed, dictated and finalized at location P. Impression: No etiology to explain the patient's symptoms
== END 2025-06-15 07:25 | disposition home or self-care (01) ==
LOC: CHSIMG 07:25
PROVIDERS: PCP Family Medicine; Visit Provider Obstetrics & Gynecology
DX: N92.1 Excessive and frequent menstruation with irregular cycle (principal)
CPT/HCPCS: 76830; 76856

== ENCOUNTER 2025-07-12 01:04 | Day surgery (SDC) | payer BC, SELFPAY ==
[2025-06-27 16:56] VITALS: BMI 22.4
--- NOTE | 2025-06-27 17:03 | SUR.PREOP ---
[facility] has started construction of its new state of the art ER which will open Spring 2026. With this, we anticipate parking may be a challenge for some our surgical patients and families. Parking spaces are limited but are available for all Surgical, obstetrics, and ER patients sharing this lot. If you arrive and find you are having a hard time finding a parking space, please note that we understand the challenges, please drive around the hospital and park near Hospital Entrance 1. When you enter this entrance, you can ask a volunteer to direct or take you back to the surgical waiting area to check in. We appreciate everyone?s understanding of these expected challenges while we build for your future. Report to the Outpatient Waiting Room, entrance under the green pavilion located off [address], at time _10am___ on date 07/12/25__. Planned Procedure Time: __12PM__.? Time changes happen often and if your time is changed the preop area will call you the afternoon before. - You and your visitor will be asked to self-screen and do not enter if you have any COVID symptoms. Please call surgeon if you need to reschedule. - A mask is optional within the hospital at this time. Patients may have clear liquids (water, carbonated beverages, clear teas, apple juice) until 3 hours prior to surgery with a maximum of 20 ounces. - No food from midnight until time of surgery and no smoking, or chewing tobacco (or any form of nicotine). No chewing gum, candy or mints. Take only the following medications with a SIP of water on the morning of surgery: None____ DO NOT STOP ANY OF YOUR OTHER PRESCRIPTION MEDICATIONS PRIOR TO SURGERY EXCEPT THE FOLLOWING Hold all vitamins and supplements for 3 days per anesthesiologist. Medications to discontinue per physician __Advised pt to follow up with the rheumatolgist regarding the simlandi dosing schedule_ Date to take last dose__07/08/25 Please no make-up, nail [place] citizen, hairspray, perfume, deodorant, or body powder the day of surgery.? No jewelry (including any body piercings) or valuables the day of surgery, leave them at home.? Please take a shower or bath the night before, or the morning of, surgery with an antibacterial soap.? Wear comfortable, loose fitting clothing.? - Jewelry must be removed prior to entering the operating room.? Rings and piercings that are not removed may be cut off. - The hospital will not accept responsibility for valuables.? - Please leave all valuables, including medications, at home the day of surgery. If you are going home after surgery, a licensed professional driver must drive you home.? - NO public transportation without another adult if you receive anesthesia. - We recommend that an adult stay with you for 24 hours following discharge. - We also recommend that you do not drive, make important decision, drink alcoholic beverages, or take any drugs that were not prescribed by your health care provider for at least 24 hours after your discharge time. Follow any additional instructions given to you from your surgeon. Telephone instructions given to _Bill_and asked if any additional questions and then verbalized understanding. Patient advised to call surgeon office or pre surgery nurse liaison [phone] if any additional questions.
--- OUTSIDE RECORDS SUMMARY | 2025-07-12 01:08 | XMS_ITS | Clinical Summary ---
Author Organization [facility] Address [facility] [place] [address] Care Team Providers Care Enamel Burner Name Role Phone Garfield Tang Primary Care Provider [phone] Social History Tobacco Use Types Packs/Day Years Used Date Smoking Tobacco: Never Assessed Comments Unknown Sex and Gender Information Value Date Recorded Sex Assigned at Not on file Legal Sex Female 10:09 PM CDT Gender Identity Not on file Sexual Orientation Not on file Last Filed Vital Signs Vital Sign Reading Time Taken Comments Blood Pressure 120/72 05/31/2015 2:47 PM CDT Pulse 76 05/31/2015 2:47 PM CDT Temperature - - Respiratory Rate - - Oxygen Saturation - - Inhaled Oxygen Concentration - - Weight 64.9 kg (143 lb) 05/31/2015 2:47 PM CDT Height 167.6 cm (5' 6) 05/31/2015 2:47 PM CDT Body Mass Index 23.08 05/31/2015 2:47 PM CDT Plan of Treatment Health Maintenance Due Date Last Done Comments Annual Physical 1992 Hepatitis C 12/05/2007 HPV Vaccines (1 - 3-dose SCDM series) 2016 Cervical Cancer Screening Pap with HPV Testing (Age 30 to 64) Every 5 Years 12/05/2019 09/06/2018 Cervical Cancer Screening Pap Smear (Age 30 to 64) Every 3 Years 09/06/2021 09/06/2018 Cervical Cancer Screening with HPV 09/06/2021 COVID-19 Vaccine ( season) 2025 09/02/2021, 02/03/2021, 01/08/2021 Influenza Adult (#1) 2025 06/05/2022, 06/20/20 18 DTaP, Tdap and Td Vaccines (6 - Td or Tdap) 02/25/2033 02/25/2023, 08/20/2020, 02/10/2019, Additional history exists Meningococcal Vaccine Completed 11/17/2006 Hepatitis B Vaccines Completed 09/19/2021, 05/09/1993, 12/02/1992, Additional history exists Hepatitis A Vaccines Aged Out No long er eligible based on patient's age to complete this topic Meningococcal B Vaccine Aged Out No l onger eligible based on patient's age to complete this topic Pneumococcal Vaccine: Pediatrics (0 to 5 Years) and At-Risk Patients (6 to 49 Years) Aged Out No longer eligible based on patient's age to complete this topic RSV Immunizations Under 20 Months Aged Out No longer eligible based on patient's age to complete this topic Insurance Care Teams Enamel Burner Relationship Specialty Start Date End Date Garfield Tang PA [address] [place] [phone] PCP - General PHYSICIAN BLOW DOWN OPERATOR 09/08/22
--- OUTSIDE RECORDS SUMMARY | 2025-07-12 01:08 | XMS_ITS | Clinical Summary ---
Author Organization [facility] Address [address] [place] [address] Care Team Providers Care Document Control Supervisor Name Role Phone Geno Marinelli MD Primary Care Provider Allergies Active Allergy Reactions Criticality Noted Date Comments Clindamycin Hives,Itching Medium 04/15/2018 hives Fentanyl Nausea And Vomiting Low 06/09/2024 Liquid Fentanyl makes her feel bad Penicillins Hives,Rash,Urticaria Medium 09/18/2013 Medications onabotulinumtoxin A (Botox) 100 unit recon soln Inject 155 Units into the muscle as instructed every 3 (three) months 4 Active Ozempic 1 mg/dose (4 mg/3 mL) pen injector injection Inject 0.5 mg under the skin once a week 5 Active rimegepant (Nurtec ODT) tablet,disintegra tingIndications:I ntractable chronic migraine without aura and without status migrainosus Take 1 tablet (75 mg total) by mouth daily as needed (Migraine Abortive) 12 tablet 3 5 Active minoxidiL (LONITEN) 10 mg tablet 5 Active insulin glargine 100 unit/mL (3 mL) pen for injection 5 Units 5 Active folic acid (FOLVITE) 1 mg tablet Take 2 tablets (2 mg total) by mouth daily Active BRI Castillo, Autoinjector 40 mg/0.4 mL auto-injector, kit INJECT 0.4 ML UNDER THE SKIN EVERY 2 WEEKS Active Mounjaro 2.5 mg/0.5 mL pen injector injection ADMINISTER 5 MG UNDER THE SKIN EVERY WEEK FOR 4 WEEKS Active Active Problems Problem Noted Date Diagnosed Date Loss of hair 03/16/2025 Generalized osteoarthritis 12/07/2024 Pain in both feet 07/05/2024 Pain in both hands 07/05/2024 Primary osteoarthritis of both knees 07/04/2024 Raynaud's phenomenon 07/04/2024 Seropositive rheumatoid arthritis 07/04/2024 Intractable chronic migraine without aura and without [...] Encounters Date Type Department Care Team Description 07/05/2025 3:30 PM NORMALIZER Procedure visit [facility] [address] [place] [phone] Tony Jensen MD Intractable chronic migraine without aura and without status migrainosus from Last 3 Months Surgical History Surgery [...] on file Legal Sex Female 2:17 PM NORMALIZER Gender Identity Female 12/10/2023 7:35 PM CDT Sexual Orientation Straight 12/10/2023 7: 35 PM CDT Last Filed Vital Signs Vital Sign Reading Time Taken Comments Blood Pressure 116/60 07/05/2025 3:43 PM NORMALIZER Pulse 94 07/05/2025 3:43 PM NORMALIZER Temperature - - Respiratory Rate 16 10/19/2024 11:37 AM NORMALIZER Oxygen Saturation 99% 07/05/2025 3:43 PM NORMALIZER Inhaled Oxygen Concentration - - Weight 62.1 kg (137 lb) 07/05/2025 3:43 PM NORMALIZER Height 165.1 cm (5' 5) 07/05/2025 3:43 PM NORMALIZER Body Mass Index 22.8 07/05/2025 3:43 PM NORMALIZER Plan of Treatment Health Maintenance Due Date Last Done Comments Cervical Cancer Screening 1989 Depression Screening 1989 Hepatitis C Screening 1989 Varicella Vaccines (1 of 2 - 13+ 2-dose series) 2002 Regular Well Visit/Exam 18-64 12/05/2007 HPV Vaccines (1 - 3-dose SCDM series) 2016 Covid-19 Vaccine ( season) 2025 09/02/2021, 02/03/2021, 01/08/2021 DTaP/Tdap/Td Vaccine (6 - Td or Tdap) 02/25/2033 02/25/2023, 08/20/2020, 02/10/2019, Additional history exists Hepatitis B Screening Completed 03/20/2022 , 10/21/2021, 09/19/2021, Additional history exists Influenza Vaccine Completed 07/03/2025, , 06/05/2022, Additional history exists Pneumococcal vaccine <65 Aged Out No longer eligible based on patient's age to complete this topic Procedures Procedure Name Priority Date/Time Associated Diagnosis Comments BOTOX INJECTION Routine 07/05/2025 3:30 PM NORMALIZER Intractable chronic migraine without aura and without status migrainosus from Last 3 Months Results * Botox Injection (07/05/2025 3:30 PM NORMALIZER) Narrative Brendon Garciasee - 07/05/2025 3:30 PM NORMALIZER AdinbillyMargaux 07/06/2025 10:28 AM Botox Injection Performed by: Tony Jensen MD Authorized by: Tony Jensen MD [place] Protocol: Procedure Details - Botox Injection: Procedure Details: See Botox flow sheet for details on injection sites and amounts. us Tony Jensen MD IN CLINIC/BEDSIDE ORDERAB LES Final Result from Last 3 Months Insurance [employer] [place] Care Teams Document Control Supervisor Relationship Specialty Start Date End Date Geno Marinelli MD [address] [place], [place] [id number] PCP - General Family Medicine 10/19/24
--- OUTSIDE RECORDS SUMMARY | 2025-07-12 01:08 | XMS_ITS | Clinical Summary ---
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 Gender Identity Not on file Sexual Orientation [...] Maintenance Due Date Last Done Comments HPV/Cotest (21-29) 2010 HPV VACCINES (1 - 3-dose SCD M series) 2016 HPV/Cotest (30-65) 12/05/2019 CERVICAL CANCER SCREENING 09/06/2021 PAP SMEAR 09/06/2021 09/06/2018 INFLUENZA VACCINE (#1) 2025 COVID-19 Vaccine (3 - 2024-2 6 season) 2025 02/03/2021, 01/08/2021 DTAP/TDAP/TD VACCINES (6 - T d or Tdap) 02/25/2033 02/25/2023, 08/20/2020, 02/10/2019, Additional history exists HEPATITIS B VACCINES Completed 09/19/2021, 05/09/1993, 12/02/1992, Additional history exists Medical Devices Implanted Type Area Payroll Secretary Device Identifier Shelf Expiration Date Model / Serial / Lot Imp Breast Inspira 605ml Full Prfl Scf-605 - Mswb - [id number] Implanted:Qty: 1 on 06/22/2024 by Thomas Oliver MD at [facility] Mammary Right: Breast ALLERGAN- MEDICAL [id number] 10/18/2028 [facility] [place] / [id number] / [id number] Imp Breast Inspira 560ml Full Prfl [facility] [place]-560 - Mswb - [id number] Implanted:Qty: 1 on 06/22/2024 by Thomas Oliver MD at [facility] Mammary Left: Breast ALLERGAN- MEDICAL [id number] 02/01/2029 [place] [id number] / [id number] / [id number] Advance Directives For more information, please contact: [phone] * Full Code (Latest Code Status on File) Date Activated Date Inactivated Comments 06/22/2024 11:25 AM 06/23/2024 2:52 AM Care Teams Landing Man Relationship Specialty Start Date End Date Sae Toth Provider PCP - General 09/09/15
--- NOTE | 2025-07-12 08:48 | PM.IMHP ---
H&P: HPI History of Present Illness Date/Time: 07/12/25 08:48 Chief Complaint: Heavy menses Narrative: 34 y/o with heavy, frequent menses. They occur every 3-4 weeks, lasting 7 days each with heavy flow and cramping. Her has had a vasectomy. She does not desire any further childbearing. Pelvic ultrasound on 06/15 was unremarkable, showing endometrial complex that was 8mm thick, and unremarkable adnexa. Review of Systems Review of Systems: All systems reviewed & are unremarkable except as noted in HPI and below PMFSH Past Medical History Medical History Rheumatoid arthritis Diabetes mellitus Gestational diabetes mellitus Surgical History Surgical History Hx of LASIK H/O breast augmentation History of hip surgery Family History Family History Father Diabetes mellitus Hyperlipidemia Hypertension Mother Hypothyroid Grandparent Cerebrovascular accident Grandparent Alysa Gehrig disease Grandparent Diabetes mellitus Hypertension Grandparent Melanoma Social History Social History Smoking status: Never smoker Second hand tobacco smoke exposure: No Alcohol intake: never Substance use: never Lack of Transportation: No Lack of Food: Never True Current Housing: I Have Housing Concerned About Future Housing: No Difficulty Paying Gas/Electric Bills: No Difficulty Paying for Meds: No Currently Unemployed: No Education: Master's Degree or Higher Difficulty w/ Childcare or Family Care: No Living arrangements: with family Spiritual care concerns: No Meds Home Medications and Allergies Home Medications ?Medication ?Instructions ?Recorded ?Confirmed ?Type adalimumab-ryvk 40 mg/0.4 mL 40 mg subcut Q14D 06/07/25 07/05/25 History subcutaneous syringe kit (Simgloriai(CF)) folic acid 1 mg tablet 1 mg PO BID 06/07/25 07/05/25 History insulin glargine 100 unit/mL (3 10 unit subcut QPM 06/07/25 07/05/25 History mL) subcutaneous pen (Lantus Solostar U-100 Insulin) minoxidil 2.5 mg tablet 5 mg PO DAILY 06/07/25 07/05/25 History multivitamin (Daily Multi-Vitamin 1 tablet PO DAILY 06/27/25 07/05/25 History tablet) tirzepatide 5 mg/0.5 mL 5 mg subcut WEEKLY 06/27/25 07/05/25 History subcutaneous pen injector (Mounjaro) Allergies Allergy/AdvReac Type Severity Reaction Status Date / Time clindamycin Allergy Hives Verified 07/05/25 08:56 Penicillins Allergy Hives Verified 07/05/25 08:56 Exam Const: Orientation/consciousness: patient oriented x3 Other: Well-developed, well-nourished female in no acute distress. Neck: Thyroid: thyroid normal Lymphatic: no lymphadenopathy noted (in neck, axilla or inguinal nodes) Resp: Effort & Inspection: normal respiratory effort Auscultation: clear to auscultation bilaterally Cardio: Rate: regular rate Rhythm: regular rhythm Heart sounds: S1 normal heart sound present and S2 normal heart sound present GI: Other: ABD: Soft, nontender, nondistended. No guarding or rebound tenderness. No hepatosplenomegaly. : General: Yes no CVA tenderness Other: External genitalia: normal female hair distribution, without lesion. Urethral meatus: no lesion, non prolapsed. Bladder: no mass, nontender Vagina: well-estrogenized, without lesion or discharge. No cystocele or rectocele. Cervix: no lesion or discharge. Uterus: small, anteverted, freely mobile, nontender Adnexa: no mass or tenderness. Anus/perineum: no lesions, nontender Back/Spine/Pelvis: Back: no CVA tenderness Skin: General skin exam: normal color and no rashes or lesions noted Neuro: General: patient oriented x3 Extrem: Other: Extremities: nontender with no edema Psych: Mental Status: mental status grossly normal Affect: normal affect Assessment and Plan Assessment and plan (1) Menometrorrhagia: Code(s): N92.1 - Excessive and frequent menstruation with irregular cycle Status: Acute Assessment and Plan: A: Menometrorrhagia. P: We have reviewed medical as well as surgical approaches to her problem, and she prefers the latter. Specifically, I have offered her a hysteroscopy, dilation and sharp curettage, and endometrial ablation. She understands risks of surgery to include risks of anesthesia, risks of pain, infection, bleeding, blood products, thromboembolic phenomena and damage to adjacent structures such as bowel, bladder, ureters, blood vessels and nerves. She understands all these risks and elects to proceed with surgery.
[2025-07-12 10:00] VITALS: BMI 23.7
[2025-07-12] MEDS: LACTATED RINGERS 1,000 ML 30 ML IV CONT (10:30)
[2025-07-12 10:43] VITALS: BP 106/75; PULSE 78; RESP 18; TEMP 36.9; O2SAT 100
--- NOTE | 2025-07-12 10:58 | WPDANESEPPF ---
Anes - Initial Pre Proc Eval Procedure: Operation Date: 07/12/25 12:00 Proposed Procedures p Hysteroscopy, Dilation and Curettage, Reshma Endometrial Ablation - Manuel Perales MD Date/Time: 07/12/25 10:58 Surgeon: Manuel Perales MD Pre Op Diagnosis: menometrohaghia Patient Data Age: 34 Gender: F Height: 1.65 m Weight: 64.6 kg Last Vital Signs Temp 36.9 C 07/12/25 10:43 Pulse 78 07/12/25 10:43 Resp 18 07/12/25 10:43 BP 106/75 07/12/25 10:43 Pulse Ox 100 07/12/25 10:43 O2 Del Method Room Air 07/12/25 10:43 Allergies Allergy/AdvReac Type Severity Reaction Status Date / Time clindamycin Allergy Hives Verified 07/12/25 10:41 Penicillins Allergy Hives Verified 07/12/25 10:41 Home Medications ?Medication ?Instructions ?Recorded ?Confirmed ?Type adalimumab-ryvk 40 mg/0.4 mL 40 mg subcut Q14D 06/07/25 07/05/25 History subcutaneous syringe kit (Simlandi(CF)) folic acid 1 mg tablet 1 mg PO BID 06/07/25 07/12/25 History insulin glargine 100 unit/mL (3 10 unit subcut QPM 06/07/25 07/12/25 History mL) subcutaneous pen (Lantus Solostar U-100 Insulin) minoxidil 2.5 mg tablet 5 mg PO DAILY 06/07/25 07/12/25 History multivitamin (Daily Multi-Vitamin 1 tablet PO DAILY 06/27/25 07/12/25 History tablet) tirzepatide 5 mg/0.5 mL 5 mg subcut WEEKLY 06/27/25 07/12/25 History subcutaneous pen injector (Mounjaro) Laboratory Tests 07/12/25 10:34 POC Capillary Glucose 78 mg/dl (65-105) Patient hx anesthesia problems: none Family hx anesthesia problems: none Results Review: All pre-operative results and documents have been reviewed as part of the pre-operative evaluation. [facility] Past Medical History Medical History Rheumatoid arthritis Diabetes mellitus Gestational diabetes mellitus Surgical History Surgical History Hx of LASIK H/O breast augmentation History of hip surgery Family History Family History Father Diabetes mellitus Hyperlipidemia Hypertension Mother Hypothyroid Grandparent Cerebrovascular accident Grandparent Alysa Gehrig disease Grandparent Diabetes mellitus Hypertension Grandparent Melanoma Social History Social History Smoking status: Never smoker Second hand tobacco smoke exposure: No Alcohol intake: never Substance use: never Lack of Transportation: No Lack of Food: Never True Current Housing: I Have Housing Concerned About Future Housing: No Difficulty Paying Gas/Electric Bills: No Difficulty Paying for Meds: No Currently Unemployed: No Education: Master's Degree or Higher Difficulty w/ Childcare or Family Care: No Living arrangements: with family Spiritual care concerns: No Anes - Eval Final PreProcedure Day of Procedure 07/12/25 10:58 Patient weight: normal Heart: regular rate and rhythm Lungs: clear to auscultation and normal air movement Airway: Mallampati scale class II Neurological: alert and oriented Last oral intake: >/= 8 hours ASA classification: III Emergent: no Anesthetic plan: proceed Anesthesia type and monitoring: general GIVS and standard monitoring Results Review: All pre-operative results and documents have been reviewed as part of the pre-operative evaluation. Informed Consent: The patient's anesthetic plan and its attendant risks and benefits were discussed with the patient/family/POA. Questions were solicited and answers provided to the satisfaction of the patient/family/POA.
[2025-07-12] MEDS: ACETAMINOPHEN 500 MG TABLET 1000 MG PO (11:55)
[2025-07-12] MEDS: LIDOCAINE 1% PF INJ 5 ML VIAL 10 ML INFILTRATE (12:03)
--- NOTE | 2025-07-12 12:10 | WPDHPUPDATE1 ---
History and Physical Update Update Date/Time: 07/12/25 12:10 History and Physical has been reviewed, including an updated exam of the patient. There are NO changes in the patient's condition. Risks, benefits, and alternatives have been discussed and questions answered. Patient agrees to proceed with procedure.
--- NOTE | 2025-07-12 12:32 | S_PTH ---
PATIENT: Bill Caban LOC: [facility] U#:[id number] AGE/SX: 34/F ROOM: RE07/12/[address]: Manuel Perales MD : 1990 BED: DIS: 07/12/2025 SPEC #: [id number] RECD: 07/12/25 13:08 STATUS: LINDA RE #: [id number] EZIO: 07/12/25 12:[address]: Manuel Perales DEPT: [facility] Surgical RECD BY: Dianne Hinds ENTERED: 07/12/25 13:08 SP TYPE: Surgical OTHR DR: Geno Marinelli, Tissues: A - Endometrial Curettings Procedures: Hematoxylin and Eosin Stain Gross and Microscopic Level 4
[2025-07-12 12:43] VITALS: BP 104/68; PULSE 90
--- NOTE | 2025-07-12 12:48 | W.PM.PROC2 ---
Procedure Note - Detailed Date of Procedure 07/12/25 Pre-op Diagnosis Menometrorrhagia Post-op Diagnosis Same Procedure Performed Hysteroscopy Dilation and sharp curettage Endometrial ablation Surgeon Manuel Perales MD Anesthesia MAC and Local (1% lidocaine) Findings Unremarkable endometrial cavity. Both tubal ostia were seen. Description of Procedure The patient was taken to the operating room where she was prepared and draped in the usual sterile fashion in the dorsal lithotomy position. The bladder was drained with a red rubber catheter. A sterile speculum was placed into the vagina. The anterior lip of the cervix was grasped with single-tooth tenaculum. Ten mL of 1% lidocaine was administered in a paracervical block. The cervix was then gently dilated using Hegar dilators until a 7 mm dilator could be passed. Hysteroscopy was performed using sterile saline as a distention medium. Findings are as noted above. Sharp curettage was then performed, and endometrial curettings were collected on a Telfa pad and passed off to be sent to pathology. Finally, the the Reshma device was advanced and endometrial ablation commenced without difficulty. The device was withdrawn and a second look was taken using the hysteroscope. Excellent coverage of the endometrial cavity was noted. The tenaculum was removed. Hemostasis was excellent. Sponge, lap, needle and instrument counts were correct. The patient was awakened and taken to the recovery room in stable condition. I was present and scrubbed through the entire procedure. Estimated Blood Loss 5 Drains No Packing No Pathology Yes (Endometrial curettings) Complications None Condition Stable Disposition PACU [facility] Billing Surgery - Charge Forward: Surgery Billing
[2025-07-12 13:13] VITALS: BP 89/60; PULSE 78
[2025-07-12 13:35] VITALS: BP 128/77; PULSE 64; RESP 14
== END 2025-07-12 13:42 | disposition home or self-care (01) ==
PROVIDERS: PCP Family Medicine; Visit Provider Obstetrics & Gynecology
PROC: 0U5B8ZZ Destruction of Endometrium, Via Natural or Artificial Opening Endoscopic (ICD-10-PCS; CPT 58563; principal; 2025-07-12 12:00)
DX: N92.1 Excessive and frequent menstruation with irregular cycle (principal); E11.9 Type 2 diabetes mellitus without complications; M06.9 Rheumatoid arthritis, unspecified; Z79.620 Long term (current) use of immunosuppressive biologic; Z79.4 Long term (current) use of insulin; Z79.85 Long-term (current) use of injectable non-insulin antidiabetic drugs; Z98.890 Other specified postprocedural states; Z80.8 Family history of malignant neoplasm of other organs or systems
CPT/HCPCS: 58563; 82948; 88305; A9270; J1100; J2003; J2250; J2405; J2704; J3010; J7120